=== PATIENT | female | born 1940 | race Caucasian/White ===

== ENCOUNTER 2024-12-12 14:51 | Inpatient (IN) ==
--- NOTE | 2024-12-12 15:28 | Emergency Department Note ---
Impression & Plan Pleural effusion, Acute dyspnea ED Provider Note Patient is an 84-year-old [facility] emergency department with shortness of breath. Patient was discharged from [facility] 4 days ago. At that time she reports that she had a pleural effusion that was drained on their right lung, she was admitted for 5 days. She was really there for hematuria which has been waxing and waning. She does take Eliquis which was decreased. She was told that she may have a lung malignancy as the cause of her pleural effusion. She was sent home and has been weak, short of breath and decreased energy different than her baseline since arriving back at home. Patient has a history of COPD, no specific cardiac history. She has had a previous stroke with residual right-sided weakness. She has had her lungs drained just this 1 time, has not been a recurrent issue. They reportedly wanted her to get a PET scan to look for malignancy, however she has not yet obtained this. She spoke with her doctor today and given that she was continuing to worsen, they recommended coming to the emergency department. ROS: Gen: No fevers, , chills, + weakness ENT: No URI sympotms, no epistaxis CV: No Chest pain Pulm: + SOB, cough GI: No nausea, vomiting. No abd pain + decreased appetite Physical exam Gen: Ill appearing, mild respiratory distress, chronically ill CV: S1 S2 No murmurs, No edema Pulm: Absent breath sound right side, diminished left side with some wheezing GI abd soft, nontendern, normal bowel sounds, no distension : No CVA tenderness, no suprapubic tenderness Skin: No rashes or erythema. ED course: Patient reevaluated, she is feeling still short of breath, she was received a breathing treatment. She does have some mild tachypnea but is maintaining oxygenation. Reviewed the x-rays and there is whiteout of the right lung suspicious for severe pleural effusion that will likely require thoracentesis. She did take Eliquis this a.m. We have reached out to Dr. Jordan of pulm/ICU to discuss next treatment steps. Case discussed with Dr. Jordan of Critical care/pulmonology at 4:49 PM, recommending noncontrast CT to rule out mucous plugging or other cause of her white. Require bronchoscopy or thoracentesis depending on cause of the whiteout. Recommends admitting to stepdown unit for further evaluation and pulmonary consult. Case placed up for admission at 5:03 PM, skilled nursing case manager notified. Patient reassessed and she feels worse on the BiPAP. She was oxygenating adequately without the BiPAP so we will try her back off. CT Noncon ordered. Nurse aware. Case discussed with hospitalist at approximately 5:15 PM, will evaluate, patient currently in CT scan. This seems to show a fairly large right-sided pleural effusion as expected. After discussion with the hospitalist and again with ICU/pulmonary Dr. Jordan. Do feel that they could manage this findings here without transfer to tertiary care center. Plan for hospitalization and management of pleural effusion, atelectasis and likely lung malignancy. Past Med/Surg History Problem List (Updated 12/12/24 @ 17:37 by Devan Hathaway MD) Acute dyspnea (Acute) Pleural effusion (Acute) Adenocarcinoma of rectum Iron deficiency anemia Diabetes mellitus HTN (hypertension) HLD (hyperlipidemia) History of CVA (cerebrovascular accident) Atrial fibrillation Anticoagulant long-term use MOMO (obstructive sleep apnea) COPD (chronic obstructive pulmonary disease) Depression with anxiety Osteoporosis Medical History History of CVA (cerebrovascular accident) MOMO (obstructive sleep apnea) COPD (chronic obstructive pulmonary disease) Depression with anxiety Osteoporosis Adenocarcinoma of rectum HLD (hyperlipidemia) HTN (hypertension) Diabetes mellitus H/O sigmoidoscopy Surgical History History of removal of ovarian cyst Hx of cholecystectomy H/O ventral hernia repair H/O esophagogastroduodenoscopy Hx of colonoscopy Family History Mother Heart disease Hypertension Stroke Sister Cancer Diabetes Brother Lung cancer Father Alcoholism Social History Smoking Status: Former smoker Tobacco Type: Cigarettes Age Started Using Tobacco: 15; Age Quit Using Tobacco: 51; packs per day: 1; Second Hand Exposure: Yes; Do You Dip or Chew Tobacco: No; Hx Alcohol Use: No Hx Substance Use: No Preferred Language: Brazilian marital status: / Current Living Situation: Family Current Living Situation Comment: lives w/ sister in law current occupational status: retired How many Children do You have: 0 Feels Safe at Home: Yes Seatbelt Use: always Do you think of yourself as: straight/heterosexual Gender Identity: Female Allergies Allergies Allergy/AdvReac Type Severity Reaction Status Date / Time No Known Allergies Allergy Verified 12/12/24 16:54 Home Meds Home Medications Medication Instructions Recorded Confirmed Oxygen Home 07/03/22 05/09/24 fluticasone propionate 50 2 spray intranasal DAILY PRN 08/31/23 12/12/24 mcg/actuation nasal Congestion spray,suspension (Allergy Relief (fluticasone)) cranberry 500 mg capsule 500 mg PO BIDM 01/12/24 12/12/24 multivitamin 1 tab PO DAILY 01/12/24 12/12/24 magnesium oxide 400 mg PO DAILY 11/09/24 12/12/24 apixaban 2.5 mg tablet (Eliquis) 2.5 mg PO BID 12/12/24 12/12/24 Previous Rx's Medication Instructions Recorded blood sugar diagnostic (OneTouch #400 ea 07/03/22 Ultra Test strips) lancets 30 gauge (OneTouch #400 ea 07/03/22 UltraSoft 2 Lancet) inhalational spacing device #1 ea 01/12/24 (Aerochamber MV spacer) Spacer for Inhaler #1 ea 01/19/24 citalopram 20 mg tablet 20 mg PO DAILY #90 tabs 01/24/24 rosuvastatin 10 mg tablet 10 mg PO DAILY #90 tabs 02/07/24 hydrochlorothiazide 12.5 mg tablet 12.5 mg PO DAILY #90 tabs 02/10/24 albuterol sulfate 90 mcg/actuation 2 puff inhalation QID PRN 02/11/24 aerosol inhaler shortness of breath or wheezing #8.5 grams insulin glargine 100 unit/mL (3 10 unit (0.1 mL) subcut QPM #15 mL 04/10/24 mL) subcutaneous pen (Basaglar KwikPen U-100 Insulin) hydralazine 10 mg tablet 10 mg PO BID #180 tabs 05/08/24 nebulizers #1 ea 05/16/24 ferrous sulfate 325 mg (65 mg 325 mg PO DAILY #30 tabs 05/19/24 iron) tablet nifedipine 60 mg tablet,extended 60 mg PO DAILY #90 tabs 06/12/24 release 24 hr lisinopril 20 mg tablet 20 mg PO DAILY #90 tabs 09/11/24 albuterol sulfate 2.5 mg/3 mL 2.5 mg (3 mL) inhalation Q6H PRN 10/31/24 (0.083 %) solution for nebulization shortness of breath or wheezing #360 mL fluticasone fur. 100 mcg-umeclid 1 inh inhalation DAILY #28 ea 11/09/24 62.5 mcg-vilant 25 mcg inhalat.powder (Trelegy Ellipta) Oxygen Home #1 ea 11/10/24 Results & Data (ED) Vital Signs Vital Signs - 24 hr 12/12/24 15:00 12/12/24 15:14 12/12/24 15:22 Temperature 36.3 C L Temperature Source Temporal Artery Scan Pulse Rate 87 Pulse Rate [Apical] Pulse Rate from SpO2 Sensor Respiratory Rate 18 Respiratory Effort / Characteristics Non-Labored Spontaneous Respiratory Depth Normal Respiratory Pattern Regular Blood Pressure 138/64 Blood Pressure [Right Arm] Blood Pressure Mean 88 Blood Pressure Mean [Right Arm] Pulse Oximetry 97 89 L Oxygen Delivery Method Room Air Nasal Cannula Nasal Cannula Oxygen Flow Rate 3 Fraction of Inspired Oxygen Sepsis Recent Fever Within 48 Hours No Sepsis New/Unexplained Change in Mental Status N/A Sepsis Action Taken by Nursing No Action Required Oxygen Flow Rate - Titration 4 Pulse Oximetry Post Tiitration 94 12/12/24 15:52 12/12/24 16:01 12/12/24 16:20 Temperature Temperature Source Pulse Rate 81 Pulse Rate [Apical] 93 H 90 Pulse Rate from SpO2 Sensor Respiratory Rate 18 20 Respiratory Effort / Characteristics Respiratory Depth Respiratory Pattern Blood Pressure Blood Pressure [Right Arm] 123/71 122/95 Blood Pressure Mean Blood Pressure Mean [Right Arm] 88 104 Pulse Oximetry 95 97 Oxygen Delivery Method Nasal Cannula Nasal Cannula Oxygen Flow Rate Fraction of Inspired Oxygen Sepsis Recent Fever Within 48 Hours Sepsis New/Unexplained Change in Mental Status Sepsis Action Taken by Nursing Oxygen Flow Rate - Titration Pulse Oximetry Post Tiitration 12/12/24 16:21 12/12/24 16:30 12/12/24 16:43 Temperature Temperature Source Pulse Rate 91 H Pulse Rate [Apical] 87 Pulse Rate from SpO2 Sensor Respiratory Rate 23 22 26 H Respiratory Effort / Characteristics Non-Labored Spontaneous Respiratory Depth Retractive Respiratory Pattern Tachypnea Blood Pressure 125/65 Blood Pressure [Right Arm] 95/54 L Blood Pressure Mean 85 Blood Pressure Mean [Right Arm] 67 Pulse Oximetry 97 97 96 Oxygen Delivery Method BiPAP Oxygen Flow Rate Fraction of Inspired Oxygen 30 Sepsis Recent Fever Within 48 Hours Sepsis New/Unexplained Change in Mental Status Sepsis Action Taken by Nursing Oxygen Flow Rate - Titration Pulse Oximetry Post Tiitration 12/12/24 16:45 12/12/24 17:00 12/12/24 18:23 Temperature Temperature Source Pulse Rate 84 Pulse Rate [Apical] 83 Pulse Rate from SpO2 Sensor 89 Respiratory Rate 21 28 H Respiratory Effort / Characteristics Respiratory Depth Respiratory Pattern Blood Pressure 112/58 L 126/66 Blood Pressure [Right Arm] 111/72 Blood Pressure Mean 89 80 Blood Pressure Mean [Right Arm] 85 Pulse Oximetry 96 96 99 Oxygen Delivery Method Oxygen Flow Rate Fraction of Inspired Oxygen Sepsis Recent Fever Within 48 Hours Sepsis New/Unexplained Change in Mental Status Sepsis Action Taken by Nursing Oxygen Flow Rate - Titration Pulse Oximetry Post Tiitration 12/12/24 18:30 Temperature Temperature Source Pulse Rate 87 Pulse Rate [Apical] Pulse Rate from SpO2 Sensor Respiratory Rate 23 Respiratory Effort / Characteristics Respiratory Depth Respiratory Pattern Blood Pressure 117/63 Blood Pressure [Right Arm] Blood Pressure Mean 92 Blood Pressure Mean [Right Arm] Pulse Oximetry 98 Oxygen Delivery Method Oxygen Flow Rate Fraction of Inspired Oxygen Sepsis Recent Fever Within 48 Hours Sepsis New/Unexplained Change in Mental Status Sepsis Action Taken by Nursing Oxygen Flow Rate - Titration Pulse Oximetry Post Tiitration mild hypoxia, does use 2 L nasal cannula at home Home Medications Current Medication List: was personally reviewed by me Additional Comments: On Eliquis, likely will impact time frame into thoracentesis. Laboratory Data No significant white blood cell count, electrolytes within normal limit, creatinine okay. 12/12/24 15:36 12/12/24 15:36 Lab Results 12/12/24 Range/Units 15:36 WBC 6.48 (4.8-10.8) K/ul RBC 3.84 L (4.20-5.40) M/uL Hgb 10.6 L (12.0-16.0) g/dl Hct 33.8 L (37.0-47.0) % MCV 88.0 (80.0-100.0) fL MCH 27.6 (25.0-34.0) pg MCHC 31.4 L (32.0-36.0) g/dL RDW Std Deviation 39.9 (36.4-46.3) fL RDW Coeff of Maurilio 12.5 (11.5-14.5) % Plt Count 311 (130-400) K/uL MPV 10.2 (9.4-12.4) fL Immature Gran % (Auto) 0.3 % Neut % (Auto) 85.8 % Lymph % (Auto) 8.0 % Alfalfa % (Auto) 5.1 % Eos % (Auto) 0.3 % Baso % (Auto) 0.5 % Neut # (Auto) 5.56 (1.40-6.50) K/uL Lymph # (Auto) 0.52 L (1.20-3.40) K/uL Alfalfa # (Auto) 0.33 (0.11-0.59) K/uL Eos # (Auto) 0.02 (0.00-0.50) K/uL Baso # (Auto) 0.03 (0.00-0.20) K/uL Immature Gran # (Auto) 0.02 (0.01-0.20) K/uL PT 11.4 (9.0-12.0) Seconds INR 1.1 (0.9-1.1) APTT 34 H (21-31) Seconds PTT Ratio 1.3 VBG pH 7.32 L (7.36-7.41) VBG pCO2 67 H (38-50) mmHg VBG pO2 30 mmHg VBG HCO3 35 mmol/L VBG O2 Saturation < 60.0 % VBG Base Excess 6.1 mEq/L Sodium 139 (136-145) mmol/L Potassium 5.1 (3.5-5.1) mmol/L Chloride 100 (98-107) mmol/L Carbon Dioxide 34 H (21-32) mmol/L Anion Gap 5 (3-11) BUN 56 H (6-23) mg/dl Creatinine 1.16 (0.6-1.2) mg/dl Est Cr Clr Drug Dosing 28.6 ml/min eGFR 46.49 BUN/Creatinine Ratio 48.3 H (10-20) Glucose 189 H (70-99(Fasting)) mg/dl Lactate 1.9 (0.4-2.0) mmol/L Calcium 10.1 (8.6-10.3) mg/dl Magnesium 2.0 (1.7-2.4) mg/dl Total Bilirubin 0.3 (0.2-1.0) mg/dl Direct Bilirubin 0.0 (0-0.2) mg/dl AST 32 (13-39) U/L ALT 14 (7-52) U/L Alkaline Phosphatase 93 (34-104) U/L Troponin I High Sens 9.9 (0-14) pg/ml B-Natriuretic Peptide 163 H (0-100) pg/ml Total Protein 6.6 (6.0-8.3) gm/dl Albumin 3.3 L (3.4-5.0) gm/dl Procalcitonin 0.11 (0-0.5) ng/ml Administered Medications Discontinued Medications Albuterol (Albut/Ipratrop 3mg/0.5mg Neb 3 Ml Vial) 3 ml NEB NOW STA; Protocol Stop: 12/12/24 15:29 Last Admin: 12/12/24 15:47 Dose: 3 ml Documented By: [facility]MA Imaging Data Attestation: I personally reviewed and interpreted this imaging study as follows: My Impression: Significant pleural effusion on the right side, whiteout of right lung, left lung looks relatively clear. No shifting of the mediastinum. Radiologist's Impression: Chest X-Ray 12/12/24 15:22 Clinical History: Sepsis Technique: A frontal view of the chest was obtained No prior examination is available for comparison Findings: There is complete opacification of the right hemithorax. There is no appreciable volume loss or mass-effect with no mediastinal shift seen. The left lung appears clear. The heart size is within normal limits. No fracture is noted. 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 Assuming this is not due to prior right pneumonectomy, this is likely due to a large right pleural effusion combined with right lung atelectasis and/or pneumonia. Underlying neoplasm cannot be excluded ACT 112: Positive. There are findings on this exam that require communication between the performing entity and the patient following Patient Test Result Information Act ([place] ACT 112) guidelines. Electronically signed by Jack Cueto 12-12-2024 4:[address] 12/12/24 16:55 EXAMINATION: Chest CT without CLINICAL HISTORY: Short of breath, abnormal chest x-ray, right pleural effusion PRIORS: Chest radiograph today TECHNIQUE: Contiguous axial images were obtained through the chest with the use of intravenous contrast. Sagittal and coronal reformations are supplied. FINDINGS: Large right pleural effusion is noted with the large central mass and/or atelectatic lung, image 27, series 2. Right mediastinal and hilar adenopathy is present. Subcarinal adenopathy noted. Heart size is normal. Possible pericardial adenopathy. Advanced atherosclerotic disease of the aorta and coronary arteries noted. Trachea and left mainstem bronchi are patent. The right subsegmental bronchi are occluded diffusely. Left lung expands normally. No dominant mass. Small pulmonary nodule or calcified granuloma present adjacent to the fissure, measuring 5 mm, image 30, series 3. Moderate osseous demineralization is noted. Kyphosis is present. Moderate compression fracture one of the lower thoracic vertebral bodies. No lytic or blastic lesion appreciated. IMPRESSION: Right hilar mass and/or atelectatic lung with large right pleural effusion, occupying the entire hemithorax. Right hilar and mediastinal adenopathy present with occlusion of the subsegmental bronchi of all lobes. Findings are worrisome for malignancy. A diagnostic and therapeutic pleurocentesis could be considered and/or PET/CT if appropriate. Tissue diagnosis suggested. ACT 112: Positive. There are findings on this examination that require communication between the performing entity and the patient following Patient Test Result Information Act ([place] ACT 112) guidelines. Electronically signed by Mary Gil 12-12-2024 5:[address] scan looks to show compressive atelectasis with right-sided pleural effusion, fairly large. Radiology report confirms large right-sided pleural effusion, does also seem to have compression from a malignant mass. Likely require bronchoscopy, thoracentesis. ECG Data Attestation: I personally reviewed and interpreted this ECG as follows: Indication: + SOB/dyspnea Rate (beats per minute): 79 Rhythm: atrial fibrillation ECG ST segments: + Normal ST segments Additional Comments: No acute ischemic changes Discharge Plan Visit Data Chief Complaint: Illness Stated Complaint: WEAK, BLOOD IN URINE, LOW O2 ED Provider: Devan Hathaway Discharge Problem: Pleural effusion, Acute dyspnea Patient Disposition: Admitted As Inpatient Condition: Serious Forms Stand Alone Forms: My [facility] Prescriptions Prescriptions: No Action (DME) Spacer for Inhaler Misc See Rx Instructions .Route Qty: 1 0RF Rx Instructions: As directed citalopram 20 mg tablet 20 mg PO DAILY Qty: 90 3RF rosuvastatin 10 mg tablet 10 mg PO DAILY Qty: 90 3RF hydrochlorothiazide 12.5 mg tablet 12.5 mg PO DAILY Qty: 90 3RF albuterol sulfate 90 mcg/actuation HFA aerosol inhaler 2 puff inhalation QID PRN (Reason: shortness of breath or wheezing) Qty: 8.5 0RF insulin glargine [Basaglar KwikPen U-100 Insulin] 100 unit/mL (3 mL) insulin pen 10 unit subcut QPM Qty: 15 3RF hydralazine 10 mg tablet 10 mg PO BID Qty: 180 3RF ferrous sulfate 325 mg (65 mg iron) tablet 325 mg PO DAILY Qty: 30 5RF nifedipine 60 mg tablet extended release 24hr 60 mg PO DAILY Qty: 90 3RF lisinopril 20 mg tablet 20 mg PO DAILY Qty: 90 3RF albuterol sulfate 2.5 mg /3 mL (0.083 %) solution for nebulization 2.5 mg inhalation Q6H PRN (Reason: shortness of breath or wheezing) Qty: 360 3RF (DME) Oxygen Home Liters Per Minute See Rx Instructions .Route Qty: 1 0RF Rx Instructions: As directed. Wear 1 liter of oygen at rest via nasal cannula. (DME) Oxygen Home Liters Per Minute See Rx Instructions .Route Rx Instructions: 2 lpm at bedtime (DME) OneTouch Ultra Test Strip See Rx Instructions .Route Qty: 400 3RF Rx Instructions: test qid dx: e11.9 (DME) lancets [OneTouch UltraSoft 2 Lancet] 30 gauge misc See Rx Instructions .Route Qty: 400 3RF Rx Instructions: test qid fluticasone propionate [Allergy Relief (fluticasone)] 50 mcg/actuation spray,suspension 2 spray intranasal DAILY PRN (Reason: Congestion) Rx Instructions: administer into each nostril (DME) nebulizers Misc See Rx Instructions .Route Qty: 1 0RF Rx Instructions: As directed magnesium oxide 400 mg magnesium capsule 400 mg PO DAILY Trelegy Ellipta 100-62.5-25 mcg blister with device 1 inh inhalation DAILY Qty: 28 2RF multivitamin Tablet 1 tab PO DAILY cranberry 500 mg capsule 500 mg PO BIDM Rx Instructions: administer with meals (DME) Aerochamber MV Spacer See Rx Instructions .Route Qty: 1 0RF Rx Instructions: As directed. Spacer for albuterol Eliquis 2.5 mg tablet 2.5 mg PO BID Rx Instructions: CHANGED DOSE 12/07/24 Referrals Referrals: Yesi Trammell DO [Primary Care Provider] -
[2024-12-12] MEDS: ALBUT/IPRATROP 3MG/0.5MG NEB 3 ML VIAL NEB STA (15:47)
[2024-12-12 15:58] LABS: Base Excess VBG 6.1 mEq/L; HCO3 VBG 35 mmol/L; Oxygen Saturation VBG < 60.0 %; PCO2 VBG 67 mmHg (38-50); PO2 VBG 30 mmHg; pH VBG 7.32 (7.36-7.41)
[2024-12-12 16:05] LABS: Hematocrit (blood only) 33.8 % (37.0-47.0); Hemoglobin 10.6 g/dl (12.0-16.0); Immature Granulocytes # (auto) 0.02 K/uL (0.01-0.20); Immature Granulocytes % (auto) 0.3 %; Mean Corpuscular Hemoglobin 27.6 pg (25.0-34.0); Mean Corpuscular Volume 88.0 fL (80.0-100.0); Platelet Count 311 K/uL (130-400); RDW Standard Deviation 39.9 fL (36.4-46.3); Red Blood Count 3.84 M/uL (4.20-5.40); White Blood Count 6.48 K/ul (4.8-10.8)
[2024-12-12 16:25] LABS: Alanine Aminotransferase 14.0 U/L (7-52); Albumin Level 3.3 gm/dl (3.4-5.0); Alkaline Phosphatase 93.0 U/L (34-104); Anion Gap 5.0 (3-11); Bilirubin,Total 0.3 mg/dl (0.2-1.0); Blood Urea Nitrogen 56.0 mg/dl (6-23); Calcium 10.1 mg/dl (8.6-10.3); Carbon Dioxide 34.0 mmol/L (21-32); Chloride 100.0 mmol/L (98-107); Creatinine Clr Calc Pharmacy 28.6 ml/min; Glucose 189.0 mg/dl (70-99(Fasting)); Magnesium 2.0 mg/dl (1.7-2.4); Potassium 5.1 mmol/L (3.5-5.1); Sodium 139.0 mmol/L (136-145); Total Protein 6.6 gm/dl (6.0-8.3)
--- NOTE | 2024-12-12 16:30 | XRay Report ---
Clinical History: Sepsis Technique: A frontal view of the chest was obtained No prior examination is available for comparison Findings: There is complete opacification of the right hemithorax. There is no appreciable volume loss or mass-effect with no mediastinal shift seen. The left lung appears clear. The heart size is within normal limits. No fracture is noted. 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 Assuming this is not due to prior right pneumonectomy, this is likely due to a large right pleural effusion combined with right lung atelectasis and/or pneumonia. Underlying neoplasm cannot be excluded ACT 112: Positive. There are findings on this exam that require communication between the performing entity and the patient following Patient Test Result Information Act ([place] ACT 112) guidelines. Electronically signed by Jack Cueto 12-12-2024 4:29 PM
[2024-12-12 16:40] LABS: INR 1.1 (0.9-1.1); Partial Thromboplastin Time 34 Seconds (21-31); Prothrombin Time 11.4 Seconds (9.0-12.0)
--- NOTE | 2024-12-12 17:53 | CT Scan Report ---
EXAMINATION: Chest CT without CLINICAL HISTORY: Short of breath, abnormal chest x-ray, right pleural effusion PRIORS: Chest radiograph today TECHNIQUE: Contiguous axial images were obtained through the chest with the use of intravenous contrast. Sagittal and coronal reformations are supplied. FINDINGS: Large right pleural effusion is noted with the large central mass and/or atelectatic lung, image 27, series 2. Right mediastinal and hilar adenopathy is present. Subcarinal adenopathy noted. Heart size is normal. Possible pericardial adenopathy. Advanced atherosclerotic disease of the aorta and coronary arteries noted. Trachea and left mainstem bronchi are patent. The right subsegmental bronchi are occluded diffusely. Left lung expands normally. No dominant mass. Small pulmonary nodule or calcified granuloma present adjacent to the fissure, measuring 5 mm, image 30, series 3. Moderate osseous demineralization is noted. Kyphosis is present. Moderate compression fracture one of the lower thoracic vertebral bodies. No lytic or blastic lesion appreciated. IMPRESSION: Right hilar mass and/or atelectatic lung with large right pleural effusion, occupying the entire hemithorax. Right hilar and mediastinal adenopathy present with occlusion of the subsegmental bronchi of all lobes. Findings are worrisome for malignancy. A diagnostic and therapeutic pleurocentesis could be considered and/or PET/CT if appropriate. Tissue diagnosis suggested. ACT 112: Positive. There are findings on this examination that require communication between the performing entity and the patient following Patient Test Result Information Act ([place] ACT 112) guidelines. Electronically signed by Mary Gil 12-12-2024 5:52 PM
--- NOTE | 2024-12-12 19:41 | History & Physical Report ---
Date of Service December 12, 2024 Assessment & Plan (1) Acute dyspnea: (2) Pleural effusion: (3) Adenocarcinoma of rectum: (4) Iron deficiency anemia: (5) Diabetes mellitus: (6) HTN (hypertension): (7) HLD (hyperlipidemia): (8) History of CVA (cerebrovascular accident): (9) Atrial fibrillation: (10) Anticoagulant long-term use: (11) MOMO (obstructive sleep apnea): (12) COPD (chronic obstructive pulmonary disease): (13) Depression with anxiety: (14) Osteoporosis: Plan #right pleural effusion #right hilar mass #hypoxemic respiratory failure #COPD - admit to PCU, pulmonary consult, initiate Unasyn for postobstructive pneumonia empiric coverage - Mucinex, DuoNeb, albuterol, respiratory therapy consult, flutter valve/ICS as tolerated - hold Eliquis for likely thoracentesis - will request records from prior thoracentesis - continuous pulse ox, telemetry monitoring - hematology/oncology consult pending results of thoracentesis/potential biopsy - will likely need to hold Eliquis for at least 24 hours, will start with cardiac/diabetic diet #MOMO - has not tolerated CPAP/BiPAP in the past, did not tolerate here - continuous pulse ox, RT consult, oxygen support as above #atrial fibrillation - rate controlled at this time, telemetry monitoring #type 2 diabetes - blood sugars fairly well-controlled, will check blood sugars AC, continue sliding scale #hypertension - hold lisinopril given mild hyperkalemia, continue nifedipine, hydralazine, HCTZ #hyperlipidemia - hold statin for the short-term #iron deficiency anemia - continue supplement #chronic anticoagulation - hold apixaban pending procedure #history of adenocarcinoma of the rectum - reportedly in remission, noted for history #history of CVA - right hemiparesis, PT and OT consult #depression/anxiety - continue citalopram #prophylaxis - SCDs #CODE STATUS - full code per her wishes, discussed at the bedside with her and her daughter History of Present Illness Chief Complaint: Shortness of breath Primary Care Provider: Yesi Trammell DO Patient is an 84-year-old history of Distant history of colon cancer 3 years ago, COPD, type 2 diabetes, right hemiplegia post CVA, paroxysmal A-fib, sleep apnea presents emergency department with shortness of breath. Patient was discharged from [facility] 4 days ago after 4-day hospitalization. at that time she had received a new diagnosis of pleural effusion which was tapped. Results have not returned. She was told that she may have a lung malignancy as the cause of her pleural effusion. She was sent home and has been weak, short of breath and decreased energy different than her baseline since arriving back at home. Secondary to the progressive shortness of breath and weakness her daughter brought her here to the emergency department for evaluation. CT obtained in the emergency department showed a recurrence of the significant right sided pleural effusion with the right hilar mass. Subsegmental obstruction was noted. No central airway obstruction noted. patient weak and hypoxemic on arrival. Blood gas consistent with acute hypoxemic respiratory failure. initially felt pretty good on BiPAP but however has a history of not tolerating secondary to anxiety. Consultation with Dr. Jordan pulmonology. Plan to admit the patient for recurrent pleural effusion. Pulmonary consult. Aggressive pulmonary toilet. RT consult. Likely thoracentesis. She is on Eliquis and took it this morning so we will hold that on admission. Allergies Allergy/AdvReac Type Severity Reaction Status Date / Time No Known Allergies Allergy Verified 12/12/24 16:54 Home Medications Medication Instructions Recorded Confirmed Type Oxygen Home 07/03/22 05/09/24 History blood sugar diagnostic (OneTouch #400 ea 07/03/22 05/09/24 Rx Ultra Test strips) lancets 30 gauge (OneTouch #400 ea 07/03/22 05/09/24 Rx UltraSoft 2 Lancet) fluticasone propionate 50 2 spray intranasal DAILY PRN 08/31/23 12/12/24 History mcg/actuation nasal Congestion spray,suspension (Allergy Relief (fluticasone)) cranberry 500 mg capsule 500 mg PO BIDM 01/12/24 12/12/24 History inhalational spacing device #1 ea 01/12/24 05/09/24 Rx (Aerochamber MV spacer) multivitamin 1 tab PO DAILY 01/12/24 12/12/24 History Spacer for Inhaler #1 ea 01/19/24 05/09/24 Rx citalopram 20 mg tablet 20 mg PO DAILY #90 tabs 01/24/24 12/12/24 Rx rosuvastatin 10 mg tablet 10 mg PO DAILY #90 tabs 02/07/24 12/12/24 Rx hydrochlorothiazide 12.5 mg tablet 12.5 mg PO DAILY #90 tabs 02/10/24 12/12/24 Rx albuterol sulfate 90 mcg/actuation 2 puff inhalation QID PRN 02/11/24 12/12/24 Rx aerosol inhaler shortness of breath or wheezing #8.5 grams insulin glargine 100 unit/mL (3 10 unit (0.1 mL) subcut QPM #15 mL 04/10/24 12/12/24 Rx mL) subcutaneous pen (Basaglar KwikPen U-100 Insulin) hydralazine 10 mg tablet 10 mg PO BID #180 tabs 05/08/24 12/12/24 Rx nebulizers #1 ea 05/16/24 05/16/24 Rx ferrous sulfate 325 mg (65 mg 325 mg PO DAILY #30 tabs 05/19/24 12/12/24 Rx iron) tablet nifedipine 60 mg tablet,extended 60 mg PO DAILY #90 tabs 06/12/24 12/12/24 Rx release 24 hr lisinopril 20 mg tablet 20 mg PO DAILY #90 tabs 09/11/24 12/12/24 Rx albuterol sulfate 2.5 mg/3 mL 2.5 mg (3 mL) inhalation Q6H PRN 10/31/24 12/12/24 Rx (0.083 %) solution for nebulization shortness of breath or wheezing #360 mL fluticasone fur. 100 mcg-umeclid 1 inh inhalation DAILY #28 ea 11/09/24 12/12/24 Rx 62.5 mcg-vilant 25 mcg inhalat.powder (Trelegy Ellipta) magnesium oxide 400 mg PO DAILY 11/09/24 12/12/24 History Oxygen Home #1 ea 11/10/24 Rx apixaban 2.5 mg tablet (Eliquis) 2.5 mg PO BID 12/12/24 12/12/24 History Past Med/Surg History Problem List (Updated 12/12/24 @ 17:37 by Devan Hathaway MD) Acute dyspnea (Acute) Pleural effusion (Acute) Adenocarcinoma of rectum Iron deficiency anemia Diabetes mellitus HTN (hypertension) HLD (hyperlipidemia) History of CVA (cerebrovascular accident) Atrial fibrillation Anticoagulant long-term use MOMO (obstructive sleep apnea) COPD (chronic obstructive pulmonary disease) Depression with anxiety Osteoporosis Medical History History of CVA (cerebrovascular accident) MOMO (obstructive sleep apnea) COPD (chronic obstructive pulmonary disease) Depression with anxiety Osteoporosis Adenocarcinoma of rectum HLD (hyperlipidemia) HTN (hypertension) Diabetes mellitus H/O sigmoidoscopy Surgical History History of removal of ovarian cyst Hx of cholecystectomy H/O ventral hernia repair H/O esophagogastroduodenoscopy Hx of colonoscopy Family History Mother Heart disease Hypertension Stroke Sister Cancer Diabetes Brother Lung cancer Father Alcoholism Social History Smoking Status: Former smoker Tobacco Type: Cigarettes Age Started Using Tobacco: 15; Age Quit Using Tobacco: 51; packs per day: 1; Second Hand Exposure: Yes; Do You Dip or Chew Tobacco: No; Hx Alcohol Use: No Hx Substance Use: No Preferred Language: Armenian marital status: / Current Living Situation: Family Current Living Situation Comment: lives w/ sister in law current occupational status: retired How many Children do You have: 0 Feels Safe at Home: Yes Seatbelt Use: always Do you think of yourself as: straight/heterosexual Gender Identity: Female Review of Systems Review of Systems: see HPI otherwise 10 point review of systems negative Physical Exam Constitutional: pleasant, conversational, no apparent distress Eyes: sclera clear and anicteric ENMT: mucous membranes moist Neck: trachea midline, no adenopathy Respiratory: absent breath sounds on the right, diminished on the left with no inspiratory or expiratory phase wheezing Cardiovascular: occasional PVCs, regular otherwise Gastrointestinal (Abdomen): nontender nondistended Musculoskeletal: no edema Skin: no rash or discoloration, no pallor Neurologic: alert and oriented x 3 Results & Data Results & Data Vital Signs (Past 12 Hours) Vital Signs Temp Pulse Pulse Resp BP BP Pulse Ox 12/12/24 18:30 87 23 117/63 98 12/12/24 18:23 83 28 H 111/72 99 12/12/24 17:00 126/66 96 12/12/24 16:45 84 21 112/58 L 96 12/12/24 16:43 26 H 125/65 96 12/12/24 16:30 87 22 95/54 L 97 12/12/24 16:21 91 H 23 97 12/12/24 16:20 90 20 122/95 97 12/12/24 16:01 81 12/12/24 15:52 93 H 18 123/71 95 12/12/24 15:22 12/12/24 15:14 89 L 12/12/24 15:00 36.3 C L 87 18 138/64 97 O2 Del Method O2 Flow Rate FiO2 12/12/24 18:30 12/12/24 18:23 12/12/24 17:00 12/12/24 16:45 12/12/24 16:43 12/12/24 16:30 BiPAP 12/12/24 16:21 30 12/12/24 16:20 Nasal Cannula 12/12/24 16:01 12/12/24 15:52 Nasal Cannula 12/12/24 15:22 Nasal Cannula 12/12/24 15:14 Nasal Cannula 3 12/12/24 15:00 Room Air Laboratory Results 12/12/24 15:36 Aerobic Blood Culture - Pending Blood Anaerobic Blood Culture - Pending 12/12/24 15:38 Aerobic Blood Culture - Pending Blood Anaerobic Blood Culture - Pending 12/12/24 15:36 WBC 6.48 RBC 3.84 L Hgb 10.6 L Hct 33.8 L MCV 88.0 MCH 27.6 MCHC 31.4 L RDW Std Deviation 39.9 RDW Coeff of Maurilio 12.5 Plt Count 311 MPV 10.2 Immature Gran % (Auto) 0.3 Neut % (Auto) 85.8 Lymph % (Auto) 8.0 [place] % (Auto) 5.1 Eos % (Auto) 0.3 Baso % (Auto) 0.5 Neut # (Auto) 5.56 Lymph # (Auto) 0.52 L [place] # (Auto) 0.33 Eos # (Auto) 0.02 Baso # (Auto) 0.03 Immature Gran # (Auto) 0.02 PT 11.4 INR 1.1 APTT 34 H PTT Ratio 1.3 VBG pH 7.32 L VBG pCO2 67 H VBG pO2 30 VBG HCO3 35 VBG O2 Saturation < 60.0 VBG Base Excess 6.1 Sodium 139 Potassium 5.1 Chloride 100 Carbon Dioxide 34 H Anion Gap 5 BUN 56 H Creatinine 1.16 Est Cr Clr Drug Dosing 28.6 eGFR 46.49 BUN/Creatinine Ratio 48.3 H Glucose 189 H Lactate 1.9 Calcium 10.1 Magnesium 2.0 Total Bilirubin 0.3 Direct Bilirubin 0.0 AST 32 ALT 14 Alkaline Phosphatase 93 Troponin I High Sens 9.9 B-Natriuretic Peptide 163 H Total Protein 6.6 Albumin 3.3 L Procalcitonin 0.11 Diagnostic Findings Chest X-Ray 12/12/24 15:22 Clinical History: Sepsis Technique: A frontal view of the chest was obtained No prior examination is available for comparison Findings: There is complete opacification of the right hemithorax. There is no appreciable volume loss or mass-effect with no mediastinal shift seen. The left lung appears clear. The heart size is within normal limits. No fracture is noted. 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 Assuming this is not due to prior right pneumonectomy, this is likely due to a large right pleural effusion combined with right lung atelectasis and/or pneumonia. Underlying neoplasm cannot be excluded ACT 112: Positive. There are findings on this exam that require communication between the performing entity and the patient following Patient Test Result Information Act ([place] ACT 112) guidelines. Electronically signed by Jack Cueto 12-12-2024 4:[address] 12/12/24 16:55 EXAMINATION: Chest CT without CLINICAL HISTORY: Short of breath, abnormal chest x-ray, right pleural effusion PRIORS: Chest radiograph today TECHNIQUE: Contiguous axial images were obtained through the chest with the use of intravenous contrast. Sagittal and coronal reformations are supplied. FINDINGS: Large right pleural effusion is noted with the large central mass and/or atelectatic lung, image 27, series 2. Right mediastinal and hilar adenopathy is present. Subcarinal adenopathy noted. Heart size is normal. Possible pericardial adenopathy. Advanced atherosclerotic disease of the aorta and coronary arteries noted. Trachea and left mainstem bronchi are patent. The right subsegmental bronchi are occluded diffusely. Left lung expands normally. No dominant mass. Small pulmonary nodule or calcified granuloma present adjacent to the fissure, measuring 5 mm, image 30, series 3. Moderate osseous demineralization is noted. Kyphosis is present. Moderate compression fracture one of the lower thoracic vertebral bodies. No lytic or blastic lesion appreciated. IMPRESSION: Right hilar mass and/or atelectatic lung with large right pleural effusion, occupying the entire hemithorax. Right hilar and mediastinal adenopathy present with occlusion of the subsegmental bronchi of all lobes. Findings are worrisome for malignancy. A diagnostic and therapeutic pleurocentesis could be considered and/or PET/CT if appropriate. Tissue diagnosis suggested. ACT 112: Positive. There are findings on this examination that require communication between the performing entity and the patient following Patient Test Result Information Act ([place] ACT 112) guidelines. Electronically signed by Mary Gil 12-12-2024 5:52 PM Code Status & VTE Plan VTE Prophylaxis Plan VTE Prophylaxis will be ordered: Yes PG Care Time/CCT Total # of Minutes Spent Total Time Spent with Patient: Total time spent is greater than 50% in coordination of care (as documented) at patient's floor/unit and/or counseling patient: Coding Level of Care Code 06879 INT INP/OBS CARE 3/75MIN Diagnoses Acute dyspnea R06.00 Pleural effusion J90 Adenocarcinoma of rectum C20 Iron deficiency anemia D50.9 Diabetes mellitus E11.9 HTN (hypertension) I10 HLD (hyperlipidemia) E78.5 History of CVA (cerebrovascular accident) Z86.73 Atrial fibrillation I48.91 Anticoagulant long-term use Z79.01 MOMO (obstructive sleep apnea) G47.33 COPD (chronic obstructive pulmonary disease) J44.9 Depression with anxiety F41.8 Osteoporosis M81.0
[2024-12-12] MEDS: AMPICILLIN/SULBACTAM SOD 3,000 MG/100 ML BAG IV SCH (21:15)
[2024-12-12] MEDS ORDERED: ONDANSETRON INJ 2 MG/ML 2 ML VIAL IV PRN (21:42)
[2024-12-12] MEDS ORDERED: ALBUTEROL 0.5% NEB SOLN 2.5 MG/0.5 ML VIAL NEB PRN (21:42)
[2024-12-12] MEDS: hydrALAZINE 10 MG TAB PO SCH (22:40)
[2024-12-12] MEDS: guaiFENesin 600 MG TABCR PO SCH (22:40)
[2024-12-13] MEDS: ALBUT/IPRATROP 3MG/0.5MG NEB 3 ML VIAL NEB SCH ×2 (01:09→19:47)
[2024-12-13 01:54] LABS: Appearance Urine Cloudy (Clear); Glucose Urine UA Negative (Negative)
[2024-12-13] MEDS: UMECLIDINIUM/VILANTEROL 62.5/25MCG 7 PUFFS/INHALER INH SCH (07:53)
[2024-12-13] MEDS: NIFEdipine EXTENDED REL 30 MG TABCR PO SCH (07:54)
[2024-12-13] MEDS: FERROUS SULFATE 325 MG TAB PO SCH (07:54)
[2024-12-13] MEDS: MAGNESIUM OXIDE 400 MG TAB PO SCH (07:55)
[2024-12-13] MEDS: CITALOPRAM 20 MG TAB PO SCH (07:56)
[2024-12-13] MEDS: FLUTICASONE FUROATE 100MCG 14 PUFFS/INHALER INH SCH (07:56)
[2024-12-13] MEDS: hydroCHLOROthiazide 25 MG TAB PO SCH (07:56)
--- NOTE | 2024-12-13 07:56 | Pulmonary Consultation ---
Date of Consultation December 13, 2024 Assessment & Plan (1) Pleural effusion: (2) Pneumonia: (3) Hypoxic respiratory failure: Plan Patient has a heavy tobacco use history. Very large pleural effusion with opacification of the right hemithorax appreciated. Patient is on Eliquis, her last dose was yesterday morning. CT is concerning for malignancy. The patient is agreeable for bronchoscopy with EBUS, biopsies with FNA and transbronchial. We will perform a thoracentesis after the bronchoscopy is completed. This will be scheduled for tomorrow morning. Please keep patient n.p.o. after midnight. Please continue to hold Eliquis. Continue antibiotics to cover for postobstructive pneumonia. Will add pulmonary toilet. Thank you for this consult. Will follow along with you. History of Present Illness Reason for Consultation: Right pleural effusion, hilar mass Requesting Physician: Hipolito Molina MD Attending Physician: Hipolito Molina MD History of Present Illness Patient is an 84-year-old female with a past medical history significant of colon cancer (diagnosed 3 years ago, status post colectomy), COPD with chronic hypoxic respiratory failure (1 L at rest, 2 L at bedtime), former tobacco use, type 2 diabetes, history of CVA with right hemiaplasia, paroxysmal atrial fibrillation on Eliquis, sleep apnea intolerant to CPAP, diabetes, hypertension and hyperlipidemia. The patient presented to the emergency department on 12/12/2024 for evaluation of shortness of breath. The patient was recently hospitalized at [facility] 4 days prior to presenting to our facility. CT of the chest during that hospital stay showed a moderate right pleural effusion so she was airspace disease and atelectasis with possible superimposed infiltrate or even malignancy and complete opacification of the upper lobe bronchus which could not exclude an endobronchial lesion. She was diagnosed at that time with a pleural effusion which was tapped on 12/06/2024 with a total of 1 L removed of clear yellow fluid. Fluid analysis is not available. The patient continued to have shortness of breath after discharge from the previous hospital. Upon arrival to the emergency department the patient was hypoxic. CT showed large right-sided pleural effusion with almost complete atelectasis of the right lung. The patient was started on antibiotics with Unasyn. She was admitted to the hospital and pulmonary was consulted for further recommendations. On examining the patient today she is resting comfortably in bed. She is on nasal cannula. She states that her breathing has continued worse. She has a cough but is not able to bring up any phlegm, she coughs when I was in the room and she does have a very weak cough. She denies any hemoptysis. She has not had fevers, chills, night sweats or noticeable weight loss. She denies any personal history of pulmonary malignancy. I discussed the option of bronchoscopy and thoracentesis and she is agreeable to these procedures. We will plan to do them on . CT chest in 2022 showed small pulmonary nodules measuring up to 0.4 cm, 1 of which was in the left upper lobe and the other ones in the right upper lobe. Known calcified granulomatous disease was seen. Previous PFT in 2018 with FEV1/FVC 54%, FEV1 was 57% predicted. Previous echocardiogram in 2008 showing LVH with diastolic dysfunction, preserved EF. History of tobacco use, smoked 1 pack/day for 39 years (63-tprp-roeb history), quit in 1992. Family history significant for breast cancer within her sister, her mother had a heart attack, hypertension and stroke. Allergies Allergy/AdvReac Type Severity Reaction Status Date / Time No Known Allergies Allergy Verified 12/12/24 16:54 Home Medications Medication Instructions Recorded Confirmed Type Oxygen Home 07/03/22 05/09/24 History blood sugar diagnostic (OneTouch #400 ea 07/03/22 05/09/24 Rx Ultra Test strips) lancets 30 gauge (OneTouch #400 ea 07/03/22 05/09/24 Rx UltraSoft 2 Lancet) fluticasone propionate 50 2 spray intranasal DAILY PRN 08/31/23 12/12/24 History mcg/actuation nasal Congestion spray,suspension (Allergy Relief (fluticasone)) cranberry 500 mg capsule 500 mg PO BIDM 01/12/24 12/12/24 History inhalational spacing device #1 ea 01/12/24 05/09/24 Rx (Aerochamber MV spacer) multivitamin 1 tab PO DAILY 01/12/24 12/12/24 History Spacer for Inhaler #1 ea 01/19/24 05/09/24 Rx citalopram 20 mg tablet 20 mg PO DAILY #90 tabs 01/24/24 12/12/24 Rx rosuvastatin 10 mg tablet 10 mg PO DAILY #90 tabs 02/07/24 12/12/24 Rx hydrochlorothiazide 12.5 mg tablet 12.5 mg PO DAILY #90 tabs 02/10/24 12/12/24 Rx albuterol sulfate 90 mcg/actuation 2 puff inhalation QID PRN 02/11/24 12/12/24 Rx aerosol inhaler shortness of breath or wheezing #8.5 grams insulin glargine 100 unit/mL (3 10 unit (0.1 mL) subcut QPM #15 mL 04/10/24 12/12/24 Rx mL) subcutaneous pen (Basaglar KwikPen U-100 Insulin) hydralazine 10 mg tablet 10 mg PO BID #180 tabs 05/08/24 12/12/24 Rx nebulizers #1 ea 05/16/24 05/16/24 Rx ferrous sulfate 325 mg (65 mg 325 mg PO DAILY #30 tabs 05/19/24 12/12/24 Rx iron) tablet nifedipine 60 mg tablet,extended 60 mg PO DAILY #90 tabs 06/12/24 12/12/24 Rx release 24 hr lisinopril 20 mg tablet 20 mg PO DAILY #90 tabs 09/11/24 12/12/24 Rx albuterol sulfate 2.5 mg/3 mL 2.5 mg (3 mL) inhalation Q6H PRN 10/31/24 12/12/24 Rx (0.083 %) solution for nebulization shortness of breath or wheezing #360 mL fluticasone fur. 100 mcg-umeclid 1 inh inhalation DAILY #28 ea 11/09/24 12/12/24 Rx 62.5 mcg-vilant 25 mcg inhalat.powder (Trelegy Ellipta) magnesium oxide 400 mg PO DAILY 11/09/24 12/12/24 History Oxygen Home #1 ea 11/10/24 Rx apixaban 2.5 mg tablet (Eliquis) 2.5 mg PO BID 12/12/24 12/12/24 History Patient History Medical History H/O sigmoidoscopy Surgical History History of removal of ovarian cyst Hx of cholecystectomy H/O ventral hernia repair H/O esophagogastroduodenoscopy Hx of colonoscopy Family History Mother Heart disease Hypertension Stroke Sister Cancer Diabetes Brother Lung cancer Father Alcoholism Social History Smoking Status: Former smoker Tobacco Type: Cigarettes Age Started Using Tobacco: 15; Age Quit Using Tobacco: 51; packs per day: 1; Second Hand Exposure: Yes; Do You Dip or Chew Tobacco: No; Hx Alcohol Use: No Hx Substance Use: No Preferred Language: Wolof Communication Ability: Effective Isobutylene Operator Chief Required: No Beliefs That Will Affect Care: None marital status: / Current Living Situation: Family Current Living Situation Comment: lives w/ sister in law current occupational status: retired How many Children do You have: 0 Feels Safe at Home: Yes Seatbelt Use: always Do you think of yourself as: straight/heterosexual Gender Identity: Female Assistive Devices: Wheelchair Review of Systems Review of Systems: A 12 point review of systems was obtained in detail. Negative except as noted in HPI. Physical Exam Physical Exam: Physical examination: General: Frail appearing, sitting at edge of bed, well-kept, not in distress. HEENT: Normocephalic, atraumatic. Extraocular movements intact. Sclera are nonicteric. No JVD appreciated. Skin: Warm and dry. No rashes appreciated. No jaundice appreciated. Cardiovascular: Heart is a regular rate and rhythm, no murmurs appreciated on my exam. No significant lower extremity edema. Lungs: Absent breath sounds on the right, diminished on the left. On nasal cannula. Nontachypneic. Abdomen: Nondistended, nontender to palpation. Musculoskeletal: Normal muscle mass and tone. No gross joint deformity abnormalities. No effusions appreciated. Neurologic: Awake and alert, oriented. CN II through XII are grossly intact. Speech is fluent. Nonfocal exam. Psychiatric: Appropriate cooperative during my exam. Results & Data Results & Data Vital Signs (Past 12 Hours) Vital Signs Temp Pulse Pulse Resp BP BP Pulse Ox 12/13/24 02:52 36.7 C 68 16 144/57 H 96 12/13/24 01:09 82 17 96 12/12/24 22:27 76 12/12/24 21:54 12/12/24 21:54 36.6 C 76 16 158/69 H 96 12/12/24 21:09 82 18 119/84 99 O2 Del Method O2 Flow Rate 12/13/24 02:52 Nasal Cannula 3 12/13/24 01:09 Nasal Cannula 3 12/12/24 22:27 12/12/24 21:54 Nasal Cannula 12/12/24 21:54 Nasal Cannula 4 12/12/24 21:09 Nasal Cannula 4 Diagnostic Findings I personally reviewed her CT imaging, large pleural effusion and right lung atelectasis are appreciated. Right upper lobe may be occluded, I am able to follow airways down into the lower lobe and middle lobe however. Adenopathy is appreciated. PG Care Time/CCT Total # of Minutes Spent Total Time Spent with Patient: Total time spent is greater than 50% in coordination of care (as documented) at patient's floor/unit and/or counseling patient: [place] [address] IN/OBS CONSULT LVL 4,60M Patient Type New History Comprehensive Exam Comprehensive Medical Decision Making Moderate Complexity Diagnoses Pleural effusion J90 Pneumonia J18.9 Hypoxic respiratory failure J96.91
[2024-12-13 07:58] LABS: Hematocrit (blood only) 32.2 % (37.0-47.0); Hemoglobin 10.1 g/dl (12.0-16.0); Immature Granulocytes # (auto) 0.02 K/uL (0.01-0.20); Immature Granulocytes % (auto) 0.3 %; Mean Corpuscular Hemoglobin 27.4 pg (25.0-34.0); Mean Corpuscular Volume 87.5 fL (80.0-100.0); Platelet Count 310 K/uL (130-400); RDW Standard Deviation 39.9 fL (36.4-46.3); Red Blood Count 3.68 M/uL (4.20-5.40); White Blood Count 6.53 K/ul (4.8-10.8)
[2024-12-13 08:16] LABS: Alanine Aminotransferase 13.0 U/L (7-52); Albumin Globulin Ratio 1.0 (0.9-2); Albumin Level 3.0 gm/dl (3.4-5.0); Alkaline Phosphatase 82.0 U/L (34-104); Anion Gap 6.0 (3-11); Bilirubin,Total 0.3 mg/dl (0.2-1.0); Blood Urea Nitrogen 48.0 mg/dl (6-23); Calcium 9.6 mg/dl (8.6-10.3); Carbon Dioxide 32.0 mmol/L (21-32); Chloride 104.0 mmol/L (98-107); Creatinine Clr Calc Pharmacy 31.5 ml/min; Globulin 3.1 gm/dl (2.5-4.0); Glucose 120.0 mg/dl (70-99(Fasting)); Magnesium 2.1 mg/dl (1.7-2.4); Potassium 5.1 mmol/L (3.5-5.1); Sodium 142.0 mmol/L (136-145); Total Protein 6.1 gm/dl (6.0-8.3)
[2024-12-13] MEDS ORDERED: NON-FORMULARY MEDICATION (Fluticasone-Umeclidin-Vilanter [Trelegy Ellipta] 100-62.5-25 mcg INH SCH (09:00)
--- NOTE | 2024-12-13 11:54 | Hospitalist Progress Note ---
Date of Service December 13, 2024 Assessment & Plan (1) Acute dyspnea: (2) Pleural effusion: (3) Adenocarcinoma of rectum: (4) Iron deficiency anemia: (5) Diabetes mellitus: (6) HTN (hypertension): (7) HLD (hyperlipidemia): (8) History of CVA (cerebrovascular accident): (9) Atrial fibrillation: (10) Anticoagulant long-term use: (11) MOMO (obstructive sleep apnea): (12) COPD (chronic obstructive pulmonary disease): (13) Depression with anxiety: (14) Osteoporosis: Plan #right pleural effusion #right hilar mass #hypoxemic respiratory failure #COPD - admit to PCU, pulmonary consult, initiate Unasyn for postobstructive pneumonia empiric coverage - Mucinex, DuoNeb, albuterol, respiratory therapy consult, flutter valve/ICS as tolerated - hold Eliquis for likely thoracentesis - will request records from prior thoracentesis - continuous pulse ox, telemetry monitoring - hematology/oncology consult pending results of thoracentesis/potential biopsy - continue to hold Eliquis #MOMO - has not tolerated CPAP/BiPAP in the past, did not tolerate here - continuous pulse ox, RT consult, oxygen support as above #atrial fibrillation - rate controlled at this time, telemetry monitoring #type 2 diabetes - blood sugars fairly well-controlled, will check blood sugars AC, continue sliding scale #hypertension - hold lisinopril given mild hyperkalemia, continue nifedipine, hydralazine, HCTZ #hyperlipidemia - hold statin for the short-term #iron deficiency anemia - continue supplement #chronic anticoagulation - hold apixaban pending procedure #history of adenocarcinoma of the rectum - reportedly in remission, noted for history #history of CVA - right hemiparesis, PT and OT consult #depression/anxiety - continue citalopram #prophylaxis - SCDs #CODE STATUS - full code per her wishes, discussed at the bedside with her and her daughter Admission and Anticipated Discharge Date Admission Date: December 12, 2024 Subjective "did not do that well overnight". States she was unable to sleep very well. Does not feel she is able to breathe adequately. Oxygen sats were okay on monitor. She did trial the BiPAP in the emergency department however has a history of not tolerating this. She does not want to repeat. We discussed different options for positioning. Otherwise she has no new or different generalized symptoms. No lower extremity edema. No history of such. Has not eaten much as of yet. No problem with urinary or bowel function Physical Exam Physical Exam: Physical examination: General: Well-appearing, well-nourished and not in acute distress. lying on her right side hospital bed HEENT: Normocephalic, atraumatic. Extraocular movements intact. Sclera are nonicteric. No JVD appreciated. Skin: Warm and dry. No rashes appreciated. No jaundice appreciated. Lymphatic: No pathologic/enlarged lymph nodes palpated in the neck, axilla. Cardiovascular: Heart is a regular rate and rhythm, no murmurs appreciated on my exam. No significant lower extremity edema. Lungs: lung sounds absent on the right, good air movement on the left with no expiratory phase wheezing Abdomen: Nondistended, nontender to palpation. No masses appreciated. Musculoskeletal: Normal muscle mass and tone. No gross joint deformity abnormalities. No effusions appreciated. Neurologic: Awake and alert, oriented. CN II through XII are grossly intact. Speech is fluent. Nonfocal exam. Psychiatric: Appropriate cooperative during my exam. Results & Data Results & Data Vital Signs (Past 12 Hours) Vital Signs Temp Pulse Resp BP BP Pulse Ox O2 Del Method 12/13/24 11:29 36.7 C 70 20 142/56 H 93 Nasal Cannula 12/13/24 09:11 Nasal Cannula 12/13/24 02:52 36.7 C 68 16 144/57 H 96 Nasal Cannula 12/13/24 01:09 82 17 96 Nasal Cannula O2 Flow Rate 12/13/24 11:29 4 12/13/24 09:11 3 12/13/24 02:52 3 12/13/24 01:09 3 Laboratory Results 12/12/24 15:36 Aerobic Blood Culture - Pending Blood Anaerobic Blood Culture - Pending 12/12/24 15:38 Aerobic Blood Culture - Pending Blood Anaerobic Blood Culture - Pending 12/13/24 12/13/24 12/13/24 11:14 07:36 07:16 WBC 6.53 RBC 3.68 L Hgb 10.1 L Hct 32.2 L MCV 87.5 MCH 27.4 MCHC 31.4 L RDW Std Deviation 39.9 RDW Coeff of Maurilio 12.5 Plt Count 310 MPV 10.1 Immature Gran % (Auto) 0.3 Neut % (Auto) 74.0 Lymph % (Auto) 15.6 [place] % (Auto) 8.1 Eos % (Auto) 1.2 Baso % (Auto) 0.8 Neut # (Auto) 4.83 Lymph # (Auto) 1.02 L [place] # (Auto) 0.53 Eos # (Auto) 0.08 Baso # (Auto) 0.05 Immature Gran # (Auto) 0.02 PT INR APTT PTT Ratio VBG pH VBG pCO2 VBG pO2 VBG HCO3 VBG O2 Saturation VBG Base Excess Sodium 142 Potassium 5.1 Chloride 104 Carbon Dioxide 32 Anion Gap 6 BUN 48 H Creatinine 1.05 Est Cr Clr Drug Dosing 31.5 eGFR 52.39 BUN/Creatinine Ratio 45.7 H Glucose 120 H POC Glucose 156 H 134 H Lactate Calcium 9.6 Magnesium 2.1 Total Bilirubin 0.3 Direct Bilirubin AST 30 ALT 13 Alkaline Phosphatase 82 Troponin I High Sens C-Reactive Protein 5.84 H B-Natriuretic Peptide Total Protein 6.1 Albumin 3.0 L Globulin 3.1 Albumin/Globulin Ratio 1.0 Procalcitonin Urine Color Urine Appearance Urine pH Ur Specific [place] Urine Protein Urine Glucose (UA) Urine Ketones Urine Blood Urine Nitrite Urine Bilirubin Urine Urobilinogen Ur Leukocyte Esterase Urine Comment 12/13/24 12/12/24 12/12/24 01:27 21:40 15:36 WBC 6.48 RBC 3.84 L Hgb 10.6 L Hct 33.8 L MCV 88.0 MCH 27.6 MCHC 31.4 L RDW Std Deviation 39.9 RDW Coeff of [place] 12.5 Plt Count 311 MPV 10.2 Immature Gran % (Auto) 0.3 Neut % (Auto) 85.8 Lymph % (Auto) 8.0 [place] % (Auto) 5.1 Eos % (Auto) 0.3 Baso % (Auto) 0.5 Neut # (Auto) 5.56 Lymph # (Auto) 0.52 L [place] # (Auto) 0.33 Eos # (Auto) 0.02 Baso # (Auto) 0.03 Immature Gran # (Auto) 0.02 PT 11.4 INR 1.1 APTT 34 H PTT Ratio 1.3 VBG pH 7.32 L VBG pCO2 67 H VBG pO2 30 VBG HCO3 35 VBG O2 Saturation < 60.0 VBG Base Excess 6.1 Sodium 139 Potassium 5.1 Chloride 100 Carbon Dioxide 34 H Anion Gap 5 BUN 56 H Creatinine 1.16 Est Cr Clr Drug Dosing 28.6 eGFR 46.49 BUN/Creatinine Ratio 48.3 H Glucose 189 H POC Glucose 108 H Lactate 1.9 Calcium 10.1 Magnesium 2.0 Total Bilirubin 0.3 Direct Bilirubin 0.0 AST 32 ALT 14 Alkaline Phosphatase 93 Troponin I High Sens 9.9 C-Reactive Protein B-Natriuretic Peptide 163 H Total Protein 6.6 Albumin 3.3 L Globulin Albumin/Globulin Ratio Procalcitonin 0.11 Urine Color Yellow Urine Appearance Cloudy A Urine pH 5.5 Ur Specific [place] 1.020 Urine Protein 2+ H Urine Glucose (UA) Negative Urine Ketones Negative Urine Blood 3+ H Urine Nitrite Negative Urine Bilirubin Negative Urine Urobilinogen Negative Ur Leukocyte Esterase Trace H Urine Comment PG Care Time/CCT Total # of Minutes Spent Total Time Spent with Patient: Total time spent is greater than 50% in coordination of care (as documented) at patient's floor/unit and/or counseling patient: Coding Level of Care Code 75811 SUB INP/OBS CARE 2/35MIN Diagnoses Acute dyspnea R06.00 Pleural effusion J90 Adenocarcinoma of rectum C20 Iron deficiency anemia D50.9 Diabetes mellitus E11.9 HTN (hypertension) I10 HLD (hyperlipidemia) E78.5 History of CVA (cerebrovascular accident) Z86.73 Atrial fibrillation I48.91 Anticoagulant long-term use Z79.01 MOMO (obstructive sleep apnea) G47.33 COPD (chronic obstructive pulmonary disease) J44.9 Depression with anxiety F41.8 Osteoporosis M81.0
[2024-12-13] MEDS ORDERED: GLUCOSE 40% GEL 15 GM TUBE PO PRN (11:55)
[2024-12-13] MEDS ORDERED: DEXTROSE 50% 50 ML SYRINGE IV PRN (11:55)
[2024-12-13] MEDS ORDERED: GLUCAGON FOR INJ 1 MG VIAL SQ PRN (11:55)
[2024-12-13] MEDS ORDERED: PHARMACY GLYCEMIC MGMT CONSULT PRN (11:55)
[2024-12-13] MEDS ORDERED: GLUCOSE 10 TAB/TUBE PO PRN (11:55)
[2024-12-13] MEDS ORDERED: CARBOHYDRATES FOR HYPOGLYCEMIA PO PRN (11:55)
[2024-12-13] MEDS: INSULIN ASPART PER UNIT CHARGE SC SCH (12:17)
[2024-12-13] MEDS ORDERED: ALBUT/IPRATROP 3MG/0.5MG NEB 3 ML VIAL NEB PRN (12:24)
--- NOTE | 2024-12-13 14:18 | Pharmacy Report ---
Pharmacy Glycemic Short Note 2 - Date of Service December 13, 2024 - Glycemic Short BSG Results (Last 24 hours): 12/12/24 12/12/24 12/13/24 15:36 21:40 07:16 Glucose 189 H 120 H POC Glucose 108 H 12/13/24 12/13/24 07:36 11:14 Glucose POC Glucose 134 H 156 H OUTPATIENT ANTIDIABETIC REGIMEN: * Lantus 10 units SQ QPM * HbA1c 6.0% (11/09/24) ASSESSMENT: * Danni is an 84 year old female admitted with shortness of breath and a history of insulin dependent type 2 diabetes mellitus. Pharmacy has been consulted to assist with glycemic management while inpatient. * Fasting BSG this AM acceptable, BSGs trending up with lunchtime, will add a basal scale at bedtime (up to home dose) if BSGs are elevated. * NovoLog at a weight based stress of 1.5. She is receiving Unasyn for empiric pneumonia coverage. PLAN FOR INPATIENT GLYCEMIC CONTROL: * Hold outpatient oral diabetes medications * Basal insulin * Lantus 0-10 units SQ HS * Bolus insulin * NovoLog per scale ACHS or Q6hrs while NPO * Goal Range: Low 120 mg/dL - High 160 mg/dL * Correction Factor: 50 mg/dL/unit * Nutritional / Prandial insulin per carb ratio of 1 unit per 15 grams CHO consumed
[2024-12-13] MEDS: ACETYLCYSTEINE 20% INHAL SOLN 4ML ***DISPENSED BY RESP. INH SCH ×2 (17:35→19:45)
[2024-12-13] MEDS: LANTUS PER UNIT CHARGE SC SCH (21:09)
[2024-12-14 08:00] LABS: Hematocrit (blood only) 29.1 % (37.0-47.0); Hemoglobin 9.3 g/dl (12.0-16.0); Immature Granulocytes # (auto) 0.03 K/uL (0.01-0.20); Immature Granulocytes % (auto) 0.5 %; Mean Corpuscular Hemoglobin 28.4 pg (25.0-34.0); Mean Corpuscular Volume 88.7 fL (80.0-100.0); Platelet Count 301 K/uL (130-400); RDW Standard Deviation 40.9 fL (36.4-46.3); Red Blood Count 3.28 M/uL (4.20-5.40); White Blood Count 6.41 K/ul (4.8-10.8)
[2024-12-14 08:12] LABS: Anion Gap 9.0 (3-11); Calcium 9.3 mg/dl (8.6-10.3); Carbon Dioxide 29.0 mmol/L (21-32); Chloride 104.0 mmol/L (98-107); Potassium 5.4 mmol/L (3.5-5.1); Sodium 142.0 mmol/L (136-145)
[2024-12-14 08:18] LABS: Blood Urea Nitrogen 51.0 mg/dl (6-23); Creatinine Clr Calc Pharmacy 26.3 ml/min; Glucose 108.0 mg/dl (70-99(Fasting))
[2024-12-14] MEDS: MoRPHine SULFATE 2 MG/ML CARP IV STA (10:14)
[2024-12-14] MEDS: LACTATED RINGER'S 1,000 ML IV SCH (13:09)
[2024-12-14] MEDS ORDERED: PROPOFOL IV EMULSION 10 MG/ML 20 ML VIAL IV ONE (13:14)
[2024-12-14] MEDS ORDERED: SUCCINYLCHOLINE CHLORIDE 20 MG/ML 10 ML VIAL IV ONE (13:14)
--- NOTE | 2024-12-14 13:26 | Hospitalist Progress Note ---
Date of Service December 14, 2024 Assessment & Plan (1) Acute dyspnea: (2) Pleural effusion: (3) Adenocarcinoma of rectum: (4) Iron deficiency anemia: (5) Diabetes mellitus: (6) HTN (hypertension): (7) HLD (hyperlipidemia): (8) History of CVA (cerebrovascular accident): (9) Atrial fibrillation: (10) Anticoagulant long-term use: (11) MOMO (obstructive sleep apnea): (12) COPD (chronic obstructive pulmonary disease): (13) Depression with anxiety: (14) Osteoporosis: Plan #right pleural effusion #right hilar mass #hypoxemic respiratory failure #COPD - admit to PCU, pulmonary consult, initiate Unasyn for postobstructive pneumonia empiric coverage - Mucinex, DuoNeb, albuterol, respiratory therapy consult, flutter valve/ICS as tolerated - hold Eliquis for likely thoracentesis - will request records from prior thoracentesis - continuous pulse ox, telemetry monitoring - hematology/oncology consult pending results of thoracentesis/potential biopsy - continue to hold Eliquis - Paracentesis possible today but stable to defer based on eliquis timing #hyperkalemia - mild, hold lisinopril, DC LR and start normal saline at 80cc/HR - recheck morning lab - consider Lokelma if this is any higher #G[place]O - provide additional maintenance fluid although will start at 80 cc/h and resuscitate gently given her significant pleural effusion - expect she will need more significant volume expansion after the thoracentesis #MOMO - has not tolerated CPAP/BiPAP in the past, did not tolerate here - continuous pulse ox, RT consult, oxygen support as above #atrial fibrillation - rate controlled at this time, telemetry monitoring - typically [id number] no sustained tachycardia #type 2 diabetes - blood sugars fairly well-controlled, will check blood sugars AC, continue sliding scale - see pharmacy note for glycemic management - within goal range #hypertension - hold lisinopril given mild hyperkalemia, continue nifedipine, hydralazine, HCTZ #hyperlipidemia - hold statin for the short-term #iron deficiency anemia - continue supplement #chronic anticoagulation - hold apixaban pending procedure #history of adenocarcinoma of the rectum - reportedly in remission, noted for history #history of CVA - right hemiparesis, PT and OT consult #depression/anxiety - continue citalopram #prophylaxis - SCDs #CODE STATUS - full code per her wishes, discussed at the bedside with her and her daughter Admission and Anticipated Discharge Date Admission Date: December 12, 2024 Subjective quite stressed and anxious this morning. Breathing is reported as difficult however she is satting well on minimal oxygen. No visible respiratory distress. Mostly very anxious if this morning. Hoping to get this tapping procedure done very soon. Otherwise no new or different symptoms. No changes in urinary or bowel function. No chest pain palpitations or lower extremity edema. No events or concerns per nurse Physical Exam Physical Exam: Physical examination: General: Well-appearing, well-nourished and not in acute distress. lying on her right side hospital bed HEENT: Normocephalic, atraumatic. Extraocular movements intact. Sclera are nonicteric. No JVD appreciated. Skin: Warm and dry. No rashes appreciated. No jaundice appreciated. Lymphatic: No pathologic/enlarged lymph nodes palpated in the neck, axilla. Cardiovascular: Heart is a regular rate and rhythm, no murmurs appreciated on my exam. No significant lower extremity edema. Lungs: lung sounds absent on the right, good air movement on the left with no expiratory phase wheezing Abdomen: Nondistended, nontender to palpation. No masses appreciated. Musculoskeletal: Normal muscle mass and tone. No gross joint deformity abnormalities. No effusions appreciated. Neurologic: Awake and alert, oriented. CN II through XII are grossly intact. Speech is fluent. Nonfocal exam. Psychiatric: Appropriate cooperative during my exam. Results & Data Results & Data Vital Signs (Past 12 Hours) Vital Signs Temp Pulse Pulse Resp BP Pulse Ox O2 Del Method 12/14/24 12:52 36.7 C 93 H 24 112/56 L 98 Nasal Cannula 12/14/24 11:14 36.4 C L 91 H 23 112/56 L 95 Nasal Cannula 12/14/24 08:15 Nasal Cannula 12/14/24 07:16 65 12 98 Nasal Cannula 12/14/24 03:52 36.5 C 61 18 115/55 L 99 Nasal Cannula O2 Flow Rate 12/14/24 12:52 5 12/14/24 11:14 5 12/14/24 08:15 4 12/14/24 07:16 5 12/14/24 03:52 5 Laboratory Results 12/12/24 15:36 Aerobic Blood Culture - Preliminary Blood No growth in Aerobic bottle after 24 hours. Anaerobic Blood Culture - Preliminary No growth in Anaerobic bottle after 24 hours. 12/12/24 15:38 Aerobic Blood Culture - Preliminary Blood No growth in Aerobic bottle after 24 hours. Anaerobic Blood Culture - Preliminary No growth in Anaerobic bottle after 24 hours. 12/14/24 12/14/24 12/14/24 11:52 07:36 07:29 WBC 6.41 RBC 3.28 L Hgb 9.3 L Hct 29.1 L MCV 88.7 MCH 28.4 MCHC 32.0 RDW Std Deviation 40.9 RDW Coeff of Maurilio 12.5 Plt Count 301 MPV 10.1 Immature Gran % (Auto) 0.5 Neut % (Auto) 72.9 Lymph % (Auto) 14.8 [place] % (Auto) 8.9 Eos % (Auto) 2.0 Baso % (Auto) 0.9 Neut # (Auto) 4.67 Lymph # (Auto) 0.95 L [place] # (Auto) 0.57 Eos # (Auto) 0.13 Baso # (Auto) 0.06 Immature Gran # (Auto) 0.03 Sodium 142 Potassium 5.4 H Chloride 104 Carbon Dioxide 29 Anion Gap 9 BUN 51 H Creatinine 1.26 H Est Cr Clr Drug Dosing 26.3 eGFR 42.10 BUN/Creatinine Ratio 40.5 H Glucose 108 H POC Glucose 131 H 133 H Calcium 9.3 C-Reactive Protein 6.80 H Procalcitonin 0.13 12/13/24 12/13/24 20:45 16:18 WBC RBC Hgb Hct MCV MCH MCHC RDW Std Deviation RDW Coeff of Maurilio Plt Count MPV Immature Gran % (Auto) Neut % (Auto) Lymph % (Auto) [place] % (Auto) Eos % (Auto) Baso % (Auto) Neut # (Auto) Lymph # (Auto) [place] # (Auto) Eos # (Auto) Baso # (Auto) Immature Gran # (Auto) Sodium Potassium Chloride Carbon Dioxide Anion Gap BUN Creatinine Est Cr Clr Drug Dosing eGFR BUN/Creatinine Ratio Glucose POC Glucose 131 H 153 H Calcium C-Reactive Protein Procalcitonin PG Care Time/CCT Total # of Minutes Spent Total Time Spent with Patient: Total time spent is greater than 50% in coordination of care (as documented) at patient's floor/unit and/or counseling patient: Coding Level of Care Code 09033 SUB INP/OBS CARE MIN Diagnoses Acute dyspnea R06.00 Pleural effusion J90 Adenocarcinoma of rectum C20 Iron deficiency anemia D50.9 Diabetes mellitus E11.9 HTN (hypertension) I10 HLD (hyperlipidemia) E78.5 History of CVA (cerebrovascular accident) Z86.73 Atrial fibrillation I48.91 Anticoagulant long-term use Z79.01 MOMO (obstructive sleep apnea) G47.33 COPD (chronic obstructive pulmonary disease) J44.9 Depression with anxiety F41.8 Osteoporosis M81.0
--- NOTE | 2024-12-14 13:30 | History & Physical Bridge Note ---
Date of Service December 14, 2024 History & Physical Bridge Note I have examined the patient, reviewed the History & Physical and in the interval since the performance of the History & Physical I have noted the following changes of clinical significance: no changes noted Patient has CT imaging with right lung atelectasis, debris/tumor obscuring airways. Additionally there is a large right pleural effusion. Her plan will be for bronchoscopy with biopsies and airway clearance. We will also perform EBUS. After bronchoscopy I will perform a right sided thoracentesis in the OR. Risk and benefits of the procedure explained in detail. Patient is agreeable. Consent was signed and placed in chart after being witness.
[2024-12-14] MEDS ORDERED: PHENYLEPHRINE 100MCG/ML 5ML SYR ONE ×3 (13:54→14:43)
[2024-12-14] MEDS ORDERED: ROCURONIUM BROMIDE 10 MG/ML 5 ML VIAL IV ONE (14:32)
[2024-12-14] MEDS ORDERED: SUGAMMADEX SODIUM 200 MG/2 ML VIAL IV ONE (15:04)
[2024-12-14] MEDS: EPINEPHrine INJ 1 MG/ML AMP INSTIL ONE ×2 (15:04→15:05)
[2024-12-14] MEDS ORDERED: ATROPINE SULFATE 0.1 MG/ML 10ML SYR IV PRN (15:26)
[2024-12-14] MEDS ORDERED: ONDANSETRON INJ 2 MG/ML 2 ML VIAL IV PRN (15:26)
--- NOTE | 2024-12-14 15:28 | Anesthesiology Consultation ---
Date of Service December 14, 2024 Assessment & Plan (1) Encounter for pre-operative examination: Chart Review Chart Review: Acceptable Risk for Surgery and Patient NOT seen in Pre Admission Testing Consults Requested none ASA ASA3 Proposed Anesthesia Anesthesia Type: General History Surgery Operation Date: 12/14/24 13:35 Proposed Procedures p Bronchoscopy - Norma Jordan MD s Endobronchial Ultrasound, Thoracentesis with Ultrasound Guidance - Norma Jordan MD Height/Weight Height: 5 ft 2 in Weight: 59.1 kg Allergies Allergy/AdvReac Type Severity Reaction Status Date / Time No Known Allergies Allergy Verified 12/12/24 16:54 Medications Home Medications Medication Instructions Recorded Confirmed Last Taken Oxygen Home 07/03/22 05/09/24 Unknown blood sugar diagnostic (OneTouch #400 ea 07/03/22 05/09/24 Unknown Ultra Test strips) lancets 30 gauge (OneTouch #400 ea 07/03/22 05/09/24 Unknown UltraSoft 2 Lancet) fluticasone propionate 50 2 spray intranasal DAILY PRN 08/31/23 12/12/24 Unknown mcg/actuation nasal Congestion spray,suspension (Allergy Relief (fluticasone)) cranberry 500 mg capsule 500 mg PO BIDM 01/12/24 12/12/24 12/12/24 08:00 inhalational spacing device #1 ea 01/12/24 05/09/24 Unknown (Aerochamber MV spacer) multivitamin 1 tab PO DAILY 01/12/24 12/12/24 12/12/24 Spacer for Inhaler #1 ea 01/19/24 05/09/24 Unknown citalopram 20 mg tablet 20 mg PO DAILY #90 tabs 01/24/24 12/12/24 12/12/24 rosuvastatin 10 mg tablet 10 mg PO DAILY #90 tabs 02/07/24 12/12/24 12/12/24 hydrochlorothiazide 12.5 mg tablet 12.5 mg PO DAILY #90 tabs 02/10/24 12/12/24 12/12/24 albuterol sulfate 90 mcg/actuation 2 puff inhalation QID PRN 02/11/24 12/12/24 Unknown aerosol inhaler shortness of breath or wheezing #8.5 grams insulin glargine 100 unit/mL (3 10 unit (0.1 mL) subcut QPM #15 mL 04/10/24 12/12/24 12/11/24 mL) subcutaneous pen (Basaglar KwikPen U-100 Insulin) hydralazine 10 mg tablet 10 mg PO BID #180 tabs 05/08/24 12/12/24 12/12/24 08:00 nebulizers #1 ea 05/16/24 05/16/24 Unknown ferrous sulfate 325 mg (65 mg 325 mg PO DAILY #30 tabs 05/19/24 12/12/24 12/12/24 iron) tablet nifedipine 60 mg tablet,extended 60 mg PO DAILY #90 tabs 06/12/24 12/12/24 12/12/24 release 24 hr lisinopril 20 mg tablet 20 mg PO DAILY #90 tabs 09/11/24 12/12/24 12/12/24 albuterol sulfate 2.5 mg/3 mL 2.5 mg (3 mL) inhalation Q6H PRN 10/31/24 12/12/24 Unknown (0.083 %) solution for nebulization shortness of breath or wheezing #360 mL fluticasone fur. 100 mcg-umeclid 1 inh inhalation DAILY #28 ea 11/09/24 12/12/24 12/12/24 62.5 mcg-vilant 25 mcg inhalat.powder (Trelegy Ellipta) magnesium oxide 400 mg PO DAILY 11/09/24 12/12/24 12/12/24 Oxygen Home #1 ea 11/10/24 Unknown apixaban 2.5 mg tablet (Eliquis) 2.5 mg PO BID 12/12/24 12/12/24 12/12/24 08:00 Active Medications Generic Name Dose Route Start Last Admin Trade Name Freq PRN Reason Stop Dose Admin Acetylcysteine 5 ml 12/13/24 19:00 12/14/24 07:15 Acetylcysteine 20% Inhal Soln 4ml Dispensed By Resp. INH 01/12/25 18:59 5 ml Q12R KENNY Administration Albuterol 3 ml 12/13/24 19:00 12/14/24 13:37 Albut/Ipratrop 3mg/0.5mg Neb 3 Ml Vial NEB 01/12/25 18:59 Not Given Q6R KENNY Protocol Citalopram Hydrobromide 20 mg 12/13/24 09:00 12/14/24 08:08 Citalopram 20 Mg Tab PO 01/12/25 08:59 20 mg DAILY KENNY Administration Ferrous Sulfate 325 mg 12/13/24 09:00 12/14/24 08:07 Ferrous Sulfate 325 Mg Tab PO 01/12/25 08:59 325 mg DAILY KENNY Administration Fluticasone Furoate 1 puffs 12/13/24 09:00 12/14/24 08:06 Fluticasone Furoate 100mcg 14 Puffs/Inhaler INH 01/12/25 08:59 1 puffs DAILY KENNY Administration Guaifenesin 600 mg 12/12/24 21:42 12/14/24 08:08 Guaifenesin 600 Mg Tabcr PO 01/11/25 21:41 600 mg Q12 KENNY Administration Hydralazine HCl 10 mg 12/12/24 21:42 12/14/24 08:07 Hydralazine 10 Mg Tab PO 01/11/25 21:41 10 mg BID KENNY Administration Hydrochlorothiazide 12.5 mg 12/13/24 09:00 12/14/24 08:07 Hydrochlorothiazide 25 Mg Tab PO 01/12/25 08:59 12.5 mg DAILY KENNY Administration Ampicillin Sodium/Sulbactam Sodium 3,000 mg in 100 mls @ 200 mls/hr 12/12/24 21:00 12/14/24 08:38 Unasyn IV 12/14/24 20:59 Infused Q12H [facility] Infusion Insulin Aspart 0 units 12/13/24 12:15 12/14/24 11:41 Insulin Aspart Per Unit Charge SC 01/12/25 12:14 Not Given ACHS [facility] Insulin Glargine 0 units 12/13/24 21:00 12/13/24 21:09 Lantus Per Unit Charge SC 01/12/25 20:59 Not Given HS [facility] Protocol Lisinopril 20 mg 12/13/24 09:00 12/13/24 07:55 Lisinopril 20 Mg Tab PO 01/12/25 08:59 20 mg DAILY KENNY Administration Magnesium Oxide 400 mg 12/13/24 09:00 12/14/24 08:08 Magnesium Oxide 400 Mg Tab PO 01/12/25 08:59 400 mg DAILY KENNY Administration Nifedipine 60 mg 12/13/24 09:00 12/14/24 08:07 Nifedipine Extended Rel 30 Mg Tabcr PO 01/12/25 08:59 60 mg DAILY KENNY Administration Umeclidinium/Vilanterol 1 puffs 12/13/24 09:00 12/14/24 08:06 Umeclidinium/Vilanterol 62.5/25mcg 7 Puffs/Inhaler INH 01/12/25 08:59 1 puffs DAILY KENNY Administration NPO Date Last Intake of Fluids: 12/13/24 Time Last Intake of Fluids: 23:00 Date Last Intake of Solids: 12/13/24 Time Last Intake of Solids: 23:00 Past Medical History Medical History H/O sigmoidoscopy Past Family History Family History Mother Heart disease Hypertension Stroke Sister Cancer Diabetes Brother Lung cancer Father Alcoholism Past Surgical History Surgical History History of removal of ovarian cyst Hx of cholecystectomy H/O ventral hernia repair H/O esophagogastroduodenoscopy Hx of colonoscopy Social History Smoking Status: Former smoker Do You Dip or Chew Tobacco: No Hx Alcohol Use: No Hx Substance Use: No Physical Exam Vital Signs Last Vital Signs Temp 98.1 F 12/14/24 12:52 Pulse 93 H 12/14/24 12:52 Resp 24 12/14/24 12:52 BP 112/56 L 12/14/24 12:52 Pulse Ox 98 12/14/24 12:52 O2 Del Method Other 12/14/24 14:56 O2 Flow Rate 5 12/14/24 12:52 FiO2 30 12/12/24 16:21 ENMT Mouth: no dentition abnormality Thyromental Distance: > or= 3.5 Finger Breadths Mallampati Class: III Neck normal visual inspection Respiratory normal respiratory effort Auscultation: lungs clear to auscultation bilaterally Cardiovascular Rate/Rhythm: regular rate and regular rhythm Neurologic moves all extremities Motor/Sensory: no sensory deficit Psychiatric Orientation: alert and oriented x 3 Testing Laboratory Results 12/14/24 07:29 12/14/24 07:29 PT 11.4 Seconds (9.0-12.0) 12/12/24 15:36 INR 1.1 (0.9-1.1) 12/12/24 15:36 APTT 34 Seconds (21-31) H 12/12/24 15:36 Urine Color Yellow 12/13/24 01:27 Urine Appearance Cloudy (Clear) A 12/13/24 01:27 Urine pH 5.5 (4.5-7.5) 12/13/24 01:27 Ur Specific [place] 1.020 (1.000-1.030) 12/13/24 01:27 Urine Protein 2+ (Negative) H 12/13/24 01:27 Urine Glucose (UA) Negative (Negative) 12/13/24 01:27 Urine Ketones Negative (Negative) 12/13/24 01:27 Urine Nitrite Negative (Negative) 12/13/24 01:27 Ur Leukocyte Esterase Trace (Negative) H 12/13/24 01:27 12/12/24 15:36 Aerobic Blood Culture - Preliminary Blood No growth in Aerobic bottle after 24 hours. Anaerobic Blood Culture - Preliminary No growth in Anaerobic bottle after 24 hours. 12/12/24 15:38 Aerobic Blood Culture - Preliminary Blood No growth in Aerobic bottle after 24 hours. Anaerobic Blood Culture - Preliminary No growth in Anaerobic bottle after 24 hours. 12/14/24 12/14/24 11:52 07:36 POC Glucose 131 H 133 H Electrocardiogram Date: 12/12/24 Findings: + CESAR @
--- NOTE | 2024-12-14 15:31 | Procedure Note ---
Procedure Note: Bronchoscopy Procedure PREOPERATIVE DIAGNOSIS: Right lung atelectasis POSTOPERATIVE DIAGNOSIS: Right lung atelectasis PROCEDURE PERFORMED: Flexible fiberoptic bronchoscopy with [bronchoalveolar lavage, transbronchial biopsies, brushings], EBUS with FNA COMPLICATIONS: None. ANESTHESIA: General Anesthesia with anesthesiology present INDICATION: Right lung atelectasis, concern for malignancy PROCEDURE: Informed consent was obtained and signed and witnessed and placed in the chart. Patient was brought to the operating room and underwent general anesthesia with ET tube. Bronchoscope was advanced into the airways, the lower one third of the trachea was examined. Trachea had normal caliber, short alber was sharp. The bronchoscope was then advanced into the left mainstem, there were some thin secretions appreciated, the left upper lobe, lingula and left lower lobe were visualized along with subsegments. No endobronchial lesions, no extrinsic compression, normal lung anatomy with normal appearing mucosa was appreciated. Bronchoscope was retracted back to the alber. The bronchoscope was then inserted into the right mainstem bronchus. Immediately upon entering the right mainstem bronchus the mucosa appeared abnormal with cobblestone appearance. The right mainstem was patent. The right upper lobe was shut off, there were tumor cells appreciated and abnormal mucosa and extensive extrinsic compression completely occluding the right upper lobe. The right middle lobe was almost completely occluded by extrinsic compression. Mucosa again appeared very abnormal with cobblestoning appearance. The right lower lobe had significant stenosis, almost completely occluded due to extrinsic compression. Abnormal appearing mucosa again appreciated. BAL was performed in the right lower lobe. Bronchial brushings were obtained from the right lower lobe. Forceps were used to biopsy the abnormal appearing mucosa at the opening of the stenosed right upper lobe with 1 biopsy performed. The patient had significant bleeding after this biopsy, cold saline and epinephrine were used to achieve hemostasis. The EBUS scope was then advanced into the airway. The left airways were examined under ultrasound, no pathologically enlarged lymph nodes appreciated in L11 or L10. Station 7 from the left was enlarged and FNA x 4 was performed with 19-gauge needle. Adequate specimen obtained. Atypical cells were present.. When performing EBUS on the right side, there is extensive atelectatic lung appreciated under ultrasound, there is an area adjacent to the right upper lobe that appears as though it is a very large lymph node or mass. FNA x 3 was performed of the right upper lobe lesion with adequate specimen obtained. After EBUS the traditional bronchoscope was advanced back into the airways to evaluate for any evidence of bleeding. Biopsy sites from station 7, forceps biopsies and right upper lobe were visualized. No active bleeding. Bronchoscope was retracted and procedure was terminated. Specimens were sent to the lab for cyto-/micro. Estimated blood loss: 5 mL Recommendations: Follow-up micro, cytology and pathology Follow-up chest x-ray [facility] [place] Procedure Codes (Charges) Pulmonary/Thoracic Procedure 1: Pulmonary and Thoracic: 14008 Bronchoscopy, w/EBUS 1 or 2 mediastinal Procedure 2: Pulmonary and Thoracic: 70042 Bronchoscopy w bronchial or endobronchial bx Procedure 3: Pulmonary and Thoracic: 74745 Dx bronchoscopy/wash
--- NOTE | 2024-12-14 15:32 | Procedure Note ---
Procedure Note: Bronchoscopy Procedure Procedure: Diagnostic therapeutic ultrasound-guided catheter thoracentesis Business Process Specialist: Dr. Norma Jordan Indication: Pleural effusion Consent: Signed by patient and verified with timeout prior to procedure Anesthesia: 1% lidocaine without epinephrine local. Procedure: Consent was verified and timeout performed. Appropriate imaging studies were reviewed prior to the procedure. Patient was placed in a seated position and limited thoracic ultrasound was performed of the right chest. See separate imaging. Appropriate site above the diaphragm for thoracentesis was selected. The skin was prepped and draped in normal sterile fashion. Lidocaine was used for local analgesia. Fluid was aspirated via the finder needle. A small skin koby was made with the scalpel and the catheter over the needle apparatus was advanced over the rib into the pleural space. Using the syringe one-way valve system, a total of 1500 mL's of yellow fluid was removed. The catheter was removed and observed to be intact. A sterile dressing was applied. Post procedure chest x-ray was ordered. Fluid was sent for labs, culture and cytology. Complications: None Blood loss: None [facility] Procedure Codes (Charges) Pulmonary/Thoracic Procedure 1: Pulmonary and Thoracic: 23754 Thoracentesis w/o imaging
[2024-12-14 16:03] LABS: Appearance Pleural Fluid Hazy; Color Pleural Fluid Yellow; RBC Pleural Fluid Auto 5000 /uL; Source Pleural Fluid Right Lung; WBC Pleural Fluid Auto 491 /uL
[2024-12-14 16:18] LABS: Albumin Level 2.8 gm/dl (3.4-5.0); Bilirubin,Total 0.3 mg/dl (0.2-1.0); Total Protein 5.7 gm/dl (6.0-8.3)
[2024-12-14 16:37] LABS: Hematocrit (blood only) 29.2 % (37.0-47.0); Hemoglobin 9.3 g/dl (12.0-16.0); Mean Corpuscular Hemoglobin 28.4 pg (25.0-34.0); Mean Corpuscular Volume 89.3 fL (80.0-100.0); Platelet Count 292 K/uL (130-400); RDW Standard Deviation 40.6 fL (36.4-46.3); Red Blood Count 3.27 M/uL (4.20-5.40); White Blood Count 8.44 K/ul (4.8-10.8)
--- NOTE | 2024-12-14 17:03 | Anesthesiology Progress Note ---
Date of Service December 14, 2024 Anesthesia Post Procedure Vital Signs Vital Signs: Temp Pulse Pulse Resp BP Pulse Ox O2 Del Method 12/14/24 16:55 36.3 C L 71 20 102/51 L 95 Nasal Cannula 12/14/24 16:45 79 20 103/45 L 94 Nasal Cannula 12/14/24 16:40 75 18 92/49 L 94 Nasal Cannula 12/14/24 16:30 72 18 98/48 L 94 Nasal Cannula 12/14/24 16:20 75 22 104/55 L 94 Nasal Cannula 12/14/24 16:10 69 23 104/47 L 94 Nasal Cannula 12/14/24 16:00 36.3 C L 72 21 97/46 L 97 Nasal Cannula 12/14/24 15:50 80 23 101/53 L 98 Nasal Cannula 12/14/24 15:40 75 23 102/45 L 94 Oxymask 12/14/24 15:30 74 21 102/48 L 98 Oxymask 12/14/24 15:20 72 26 H 108/51 L 97 Oxymask 12/14/24 15:13 36.3 C L 74 24 108/48 L 95 Oxymask 12/14/24 14:56 Other 12/14/24 12:52 36.7 C 93 H 24 112/56 L 98 Nasal Cannula 12/14/24 11:14 36.4 C L 91 H 23 112/56 L 95 Nasal Cannula 12/14/24 08:15 Nasal Cannula 12/14/24 07:16 65 12 98 Nasal Cannula 12/14/24 03:52 36.5 C 61 18 115/55 L 99 Nasal Cannula 12/13/24 23:41 Nasal Cannula 12/13/24 22:34 36.8 C 65 18 107/58 L 99 Nasal Cannula 12/13/24 20:00 Nasal Cannula 12/13/24 19:47 67 19 97 Nasal Cannula 12/13/24 19:17 36.6 C 71 18 119/57 L 98 Free Flow/Blow-by O2 Flow Rate 12/14/24 16:55 3 12/14/24 16:45 3 12/14/24 16:40 3 12/14/24 16:30 3 12/14/24 16:20 3 12/14/24 16:10 3 12/14/24 16:00 4 12/14/24 15:50 4 12/14/24 15:40 4 12/14/24 15:30 6 12/14/24 15:20 11 12/14/24 15:13 11 12/14/24 14:56 12/14/24 12:52 5 12/14/24 11:14 5 12/14/24 08:15 4 12/14/24 07:16 5 12/14/24 03:52 5 12/13/24 23:41 12/13/24 22:34 5 12/13/24 20:00 4 12/13/24 19:47 5 12/13/24 19:17 5 Transfer of Care Handoff Completed per policy Notes Mental Status: alert / awake / arousable Patient Amnestic to Procedure: Yes Nausea / Vomiting: adequately controlled Pain: adequately controlled Airway Patency, RR, SpO2: stable & adequate BP & HR: stable & adequate Hydration State: stable & adequate Anesthetic Complications: no major complications apparent
--- NOTE | 2024-12-14 17:05 | XRay Report ---
Technique: A frontal view of the chest was obtained Comparison is made to the chest CT dated 12/12/2024 Findings: There is unchanged complete opacification of the right hemithorax. The heart size is within normal limits. No left pleural effusion or pneumothorax is seen. There is an unchanged small nodule in the left midlung No fracture is noted. 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 Unchanged complete opacification of the right hemithorax 2. Unchanged small left midlung nodule ACT 112: Positive. There are findings on this exam that require communication between the performing entity and the patient following Patient Test Result Information Act ([place] ACT 112) guidelines. Electronically signed by Jack Cueto 12-14-2024 5:05 PM
[2024-12-14] MEDS: LIDOCAINE VISCOUS 2% 100ML BOTTLE NAE ONE (17:34)
[2024-12-14] MEDS: TRANEXAMIC ACID 100 MG/ML 10 ML VIAL INSTIL ONE (17:34)
[2024-12-14] MEDS: SODIUM CHLORIDE 0.9% 500 ML IV SCH (17:35)
--- NOTE | 2024-12-15 07:45 | Pharmacy Report ---
Pharmacy Glycemic Short Note 2 - Date of Service December 15, 2024 - Glycemic Short BSG Results (Last 24 hours): 12/14/24 12/14/24 12/14/24 07:29 07:36 11:52 Glucose 108 H POC Glucose 133 H 131 H 12/14/24 12/14/24 12/15/24 15:27 20:04 07:28 Glucose POC Glucose 160 H 172 H 122 H OUTPATIENT ANTIDIABETIC REGIMEN: * Lantus 10 units SQ QPM * HbA1c 6.0% (11/09/24) ASSESSMENT: 12/15: * Patient received total of 6 units of insulin yesterday, of which 5 units were basal insulin * Was NPO fro bronch yesterday, diet resumed now * Continue same parameters today 12/13 * Danni is an 84 year old female admitted with shortness of breath and a history of insulin dependent type 2 diabetes mellitus. Pharmacy has been consulted to assist with glycemic management while inpatient. * Fasting BSG this AM acceptable, BSGs trending up with lunchtime, will add a basal scale at bedtime (up to home dose) if BSGs are elevated. * NovoLog at a weight based stress of 1.5. She is receiving Unasyn for empiric pneumonia coverage. PLAN FOR INPATIENT GLYCEMIC CONTROL: * Hold outpatient oral diabetes medications * Basal insulin * Lantus 0-10 units SQ HS * Bolus insulin * NovoLog per scale ACHS or Q6hrs while NPO * Goal Range: Low 120 mg/dL - High 160 mg/dL * Correction Factor: 50 mg/dL/unit * Nutritional / Prandial insulin per carb ratio of 1 unit per 15 grams CHO consumed
--- NOTE | 2024-12-15 08:14 | XRay Report ---
EXAM: XR chest 1V portable CLINICAL HISTORY: post thoracentesis and bronch TECHNIQUE: X-ray image of the chest obtained in AP projection. COMPARISON: X-ray dated 12/14/2024 FINDINGS: Pulmonary Parenchyma: Unchanged complete opacification of right hemithorax. Unchanged small nodular opacity in left mid zone likely healed granuloma. No evidence of left pleural effusion or pleural thickening. Heart and Mediastinum: Heart size and shape are normal. No mediastinal widening or masses. No hilar or mediastinal lymphadenopathy. Bony Thorax: Bony thorax appears intact without fractures or deformities. Degenerative changes in bilateral shoulder joints. Soft Tissues: Soft tissues overlying the chest wall are unremarkable. IMPRESSION: 1. Unchanged complete opacification of right hemithorax. 2. Unchanged small nodular opacity in left mid zone likely healed granuloma. 3. No significant interval changes. Electronically signed by Kwadwo Gaines 12-15-2024 08:13 AM
[2024-12-15] MEDS: AMPICILLIN/SULBACTAM SOD 3,000 MG/100 ML BAG IV SCH (08:26)
[2024-12-15 08:44] LABS: Lymphocytes, Fluid 80 %; Mono,Macrophage,Mesothelial 16 %; Neutrophils, Fluid 4 %
[2024-12-15 09:54] LABS: Hematocrit (blood only) 27.3 % (37.0-47.0); Hemoglobin 8.5 g/dl (12.0-16.0); Immature Granulocytes # (auto) 0.03 K/uL (0.01-0.20); Immature Granulocytes % (auto) 0.4 %; Mean Corpuscular Hemoglobin 27.5 pg (25.0-34.0); Mean Corpuscular Volume 88.3 fL (80.0-100.0); Platelet Count 309 K/uL (130-400); RDW Standard Deviation 41.1 fL (36.4-46.3); Red Blood Count 3.09 M/uL (4.20-5.40); White Blood Count 7.34 K/ul (4.8-10.8)
[2024-12-15 10:01] LABS: Anion Gap 6.0 (3-11); Blood Urea Nitrogen 57.0 mg/dl (6-23); Calcium 8.6 mg/dl (8.6-10.3); Carbon Dioxide 30.0 mmol/L (21-32); Chloride 105.0 mmol/L (98-107); Creatinine Clr Calc Pharmacy 19.4 ml/min; Glucose 156.0 mg/dl (70-99(Fasting)); Magnesium 2.2 mg/dl (1.7-2.4); Potassium 5.2 mmol/L (3.5-5.1); Sodium 141.0 mmol/L (136-145)
--- NOTE | 2024-12-15 10:51 | Hospitalist Progress Note ---
Date of Service December 15, 2024 Assessment & Plan (1) Acute dyspnea: (2) Pleural effusion: (3) Adenocarcinoma of rectum: (4) Iron deficiency anemia: (5) Diabetes mellitus: (6) HTN (hypertension): (7) HLD (hyperlipidemia): (8) History of CVA (cerebrovascular accident): (9) Atrial fibrillation: (10) Anticoagulant long-term use: (11) MOMO (obstructive sleep apnea): (12) COPD (chronic obstructive pulmonary disease): (13) Depression with anxiety: (14) Osteoporosis: Plan #right pleural effusion #right hilar mass #hypoxemic respiratory failure #COPD - admit to PCU, pulmonary consult, initiate Unasyn for postobstructive pneumonia empiric coverage - Mucinex, DuoNeb, albuterol, respiratory therapy consult, flutter valve/ICS as tolerated - Tolerated thoracentesis well, resume Eliquis tomorrow. Will clear with pulmonology. Fluid studies pending - Continue Unasyn for post obstructive pneumonia, culutres pending, gram stain unremarkable #hyperkalemia - mild, hold lisinopril, DC LR and start normal saline at 80cc/HR - recheck morning lab - consider Lokelma if this is any higher - lisinopril on hold, potassium level trending downward. Will continue to monitor #G[place]KITO - provide additional maintenance fluid although will start at 80 cc/h and resuscitate gently given her significant pleural effusion - expect she will need more significant volume expansion after the thoracentesis - interval decrease in creatinine, chief if are down by 12 points. In the setting of poor oral intake and thoracentesis - continue to monitor closely, urinalysis when available. #MOMO - has not tolerated CPAP/BiPAP in the past, did not tolerate here - continuous pulse ox, RT consult, oxygen support as above #atrial fibrillation - rate controlled at this time, telemetry monitoring - typically 98466 no sustained tachycardia - Rate controlled at this time #type 2 diabetes - blood sugars fairly well-controlled, will check blood sugars AC, continue sliding scale - see pharmacy note for glycemic management - within goal range - pharmacy consult for glycemic control, within goal range #hypertension - hold lisinopril given mild hyperkalemia, continue nifedipine, hydralazine, HCTZ #hyperlipidemia - hold statin for the short-term #iron deficiency anemia - continue supplement #chronic anticoagulation - hold apixaban pending procedure #history of adenocarcinoma of the rectum - reportedly in remission, noted for history #history of CVA - right hemiparesis, PT and OT consult #depression/anxiety - continue citalopram #prophylaxis - SCDs #CODE STATUS - full code per her wishes, discussed at the bedside with her and her daughter Admission and Anticipated Discharge Date Admission Date: December 12, 2024 Subjective doing better this morning. Breathing is much more comfortable. Nonlabored. Tolerated the thoracentesis procedure well yesterday. No new complaints or concerns per patient. Up had breakfast doing pretty well with that. No problem with the limitations. Nursing staff reports she is doing quite well, markedly improved after thoracentesis. Diastolic pressure is a little bit on the low side. Physical Exam Physical Exam: Physical examination: General: Well-appearing, well-nourished and not in acute distress. lying on her right side hospital bed HEENT: Normocephalic, atraumatic. Extraocular movements intact. Sclera are nonicteric. No JVD appreciated. Skin: Warm and dry. No rashes appreciated. No jaundice appreciated. Lymphatic: No pathologic/enlarged lymph nodes palpated in the neck, axilla. Cardiovascular: Heart is a regular rate and rhythm, no murmurs appreciated on my exam. No significant lower extremity edema. Lungs: lung sounds absent on the right, good air movement on the left with no expiratory phase wheezing Abdomen: Nondistended, nontender to palpation. No masses appreciated. Musculoskeletal: Normal muscle mass and tone. No gross joint deformity abnormalities. No effusions appreciated. Neurologic: Awake and alert, oriented. CN II through XII are grossly intact. Speech is fluent. Nonfocal exam. Psychiatric: Appropriate cooperative during my exam. Results & Data Results & Data Vital Signs (Past 12 Hours) Vital Signs Temp Pulse Resp BP Pulse Ox O2 Del Method O2 Flow Rate 12/15/24 09:36 Nasal Cannula 2 12/15/24 08:00 36.6 C 62 18 102/42 L 93 Nasal Cannula 3 12/15/24 07:04 67 16 95 Nasal Cannula 3 12/15/24 03:57 36.6 C 95 H 18 102/42 L 94 Nasal Cannula 3 12/14/24 23:12 36.5 C 95 H 18 108/54 L 96 Nasal Cannula 3 Laboratory Results 12/14/24 Unknown Gram Stain - Final Bronch Wash,Right Lower Lobe Bronchial Culture - Pending 12/14/24 Unknown Gram Stain - Final Pleural Fluid,Right Aerobic and Anaerobic Culture - Pending 12/12/24 15:36 Aerobic Blood Culture - Preliminary Blood No growth in Aerobic bottle after 48 hours. Anaerobic Blood Culture - Preliminary No growth in Anaerobic bottle after 48 hours. 12/12/24 15:38 Aerobic Blood Culture - Preliminary Blood No growth in Aerobic bottle after 48 hours. Anaerobic Blood Culture - Preliminary No growth in Anaerobic bottle after 48 hours. 12/14/24 Unknown Acid Fast Bacilli Smear - Pending Lung Acid Fast Bacilli Culture - Pending 12/14/24 Unknown Acid Fast Bacilli Smear - Pending Bronch Wash,Right Lower Lobe Acid Fast Bacilli Culture - Pending 12/15/24 12/15/24 12/14/24 08:15 07:28 Unknown WBC 7.34 RBC 3.09 L Hgb 8.5 L Hct 27.3 L MCV 88.3 MCH 27.5 MCHC 31.1 L RDW Std Deviation 41.1 RDW Coeff of Maurilio 12.8 Plt Count 309 MPV 10.1 Immature Gran % (Auto) 0.4 Neut % (Auto) 81.1 Lymph % (Auto) 10.2 Emanuel % (Auto) 7.2 Eos % (Auto) 0.7 Baso % (Auto) 0.4 Neut # (Auto) 5.95 Lymph # (Auto) 0.75 L Emanuel # (Auto) 0.53 Eos # (Auto) 0.05 Baso # (Auto) 0.03 Immature Gran # (Auto) 0.03 Sodium 141 Potassium 5.2 H Chloride 105 Carbon Dioxide 30 Anion Gap 6 BUN 57 H Creatinine 1.71 H D Est Cr Clr Drug Dosing 19.4 eGFR 29.18 BUN/Creatinine Ratio 33.3 H Glucose 156 H POC Glucose 122 H Calcium 8.6 Magnesium 2.2 Total Bilirubin Lactate Dehydrogenase C-Reactive Protein 11.26 H Total Protein Albumin Fluid Neutrophils % 4 Fluid Lymphocytes % 80 Fluid Meso/Macro/Emanuel % 16 Fluid Slide Review Fluid Comment Pleural Fluid Source Right Lung Pleural Color Yellow Pleural Appearance Hazy Pleural WBC (Auto) 491 Pleural RBC (Auto) 5000 Pleural Total Protein 3.4 Pleural LDH 392 Pleural Glucose 124 Pleural Amylase 27 12/14/24 12/14/24 12/14/24 20:04 16:23 15:39 WBC 8.44 RBC 3.27 L Hgb 9.3 L Hct 29.2 L MCV 89.3 MCH 28.4 MCHC 31.8 L RDW Std Deviation 40.6 RDW Coeff of Maurilio 12.4 Plt Count 292 MPV 9.9 Immature Gran % (Auto) Neut % (Auto) Lymph % (Auto) Emanuel % (Auto) Eos % (Auto) Baso % (Auto) Neut # (Auto) Lymph # (Auto) Emanuel # (Auto) Eos # (Auto) Baso # (Auto) Immature Gran # (Auto) Sodium Potassium Chloride Carbon Dioxide Anion Gap BUN Creatinine Est Cr Clr Drug Dosing eGFR BUN/Creatinine Ratio Glucose POC Glucose 172 H Calcium Magnesium Total Bilirubin 0.3 Lactate Dehydrogenase 281 H C-Reactive Protein Total Protein 5.7 L Albumin 2.8 L Fluid Neutrophils % Fluid Lymphocytes % Fluid Meso/Macro/Emanuel % Fluid Slide Review Fluid Comment Pleural Fluid Source Pleural Color Pleural Appearance Pleural WBC (Auto) Pleural RBC (Auto) Pleural Total Protein Pleural LDH Pleural Glucose Pleural Amylase 12/14/24 12/14/24 15:27 11:52 WBC RBC Hgb Hct MCV MCH MCHC RDW Std Deviation RDW Coeff of Maurilio Plt Count MPV Immature Gran % (Auto) Neut % (Auto) Lymph % (Auto) Emanuel % (Auto) Eos % (Auto) Baso % (Auto) Neut # (Auto) Lymph # (Auto) Emanuel # (Auto) Eos # (Auto) Baso # (Auto) Immature Gran # (Auto) Sodium Potassium Chloride Carbon Dioxide Anion Gap BUN Creatinine Est Cr Clr Drug Dosing eGFR BUN/Creatinine Ratio Glucose POC Glucose 160 H 131 H Calcium Magnesium Total Bilirubin Lactate Dehydrogenase C-Reactive Protein Total Protein Albumin Fluid Neutrophils % Fluid Lymphocytes % Fluid Meso/Macro/Emanuel % Fluid Slide Review Fluid Comment Pleural Fluid Source Pleural Color Pleural Appearance Pleural WBC (Auto) Pleural RBC (Auto) Pleural Total Protein Pleural LDH Pleural Glucose Pleural Amylase Diagnostic Findings Chest X-Ray 12/15/24 07:00 EXAM: XR chest 1V portable CLINICAL HISTORY: post thoracentesis and bronch TECHNIQUE: X-ray image of the chest obtained in AP projection. COMPARISON: X-ray dated 12/14/2024 FINDINGS: Pulmonary Parenchyma: Unchanged complete opacification of right hemithorax. Unchanged small nodular opacity in left mid zone likely healed granuloma. No evidence of left pleural effusion or pleural thickening. Heart and Mediastinum: Heart size and shape are normal. No mediastinal widening or masses. No hilar or mediastinal lymphadenopathy. Bony Thorax: Bony thorax appears intact without fractures or deformities. Degenerative changes in bilateral shoulder joints. Soft Tissues: Soft tissues overlying the chest wall are unremarkable. IMPRESSION: 1. Unchanged complete opacification of right hemithorax. 2. Unchanged small nodular opacity in left mid zone likely healed granuloma. 3. No significant interval changes. Electronically signed by Kwadwo Gaines 12-15-2024 08:13 AM PG Care Time/CCT Total # of Minutes Spent Total Time Spent with Patient: Total time spent is greater than 50% in coordination of care (as documented) at patient's floor/unit and/or counseling patient: Coding Level of Care Code 51482 SUB INP/OBS CARE 2/35MIN Diagnoses Acute dyspnea R06.00 Pleural effusion J90 Adenocarcinoma of rectum C20 Iron deficiency anemia D50.9 Diabetes mellitus E11.9 HTN (hypertension) I10 HLD (hyperlipidemia) E78.5 History of CVA (cerebrovascular accident) Z86.73 Atrial fibrillation I48.91 Anticoagulant long-term use Z79.01 MOMO (obstructive sleep apnea) G47.33 COPD (chronic obstructive pulmonary disease) J44.9 Depression with anxiety F41.8 Osteoporosis M81.0
--- NOTE | 2024-12-15 15:30 | Pulmonology Progress Note ---
Date of Service December 15, 2024 Assessment & Plan (1) Pneumonia: (2) Hypoxic respiratory failure: (3) Malignant pleural effusion: (4) Small cell lung cancer: Plan Patient is an 84-year-old female with heavy tobacco use history. Pulmonary has been consulted during her hospital stay for right hemithorax opacification. The patient underwent thoracentesis 12/14/2024: Malignant cells are present, consistent with metastatic small cell carcinoma. Underwent bronchoscopy 12/14, all samples were positive for small cell carcinoma. Problems: Metastatic small cell carcinoma Heavy tobacco use history COPD Hypoxic respite failure Recommendation/plan: Please consult oncology and palliative care. Patient will need PET/CT and MRI of the brain. Small cell is usually metastatic on presentation. Patient may resume Eliquis. Continue antibiotics for total of 7 days to cover for postobstructive pneumonia. Continue bronchodilators and pulmonary toilet. Thank you for this consult. I will sign off at this time. Please call me with any questions. Admission and Anticipated Discharge Date Admission Date: December 12, 2024 Subjective Patient was examined today at bedside. Resting comfortably in bed. Not having any hemoptysis. Breathing is unchanged. Review of Systems Review of Systems: A 12 point review of systems was obtained in detail. Negative except as noted in HPI. Physical Exam Physical Exam: Physical examination: General: Frail appearing, sitting at edge of bed, well-kept, not in distress. HEENT: Normocephalic, atraumatic. Extraocular movements intact. Sclera are nonicteric. No JVD appreciated. Skin: Warm and dry. No rashes appreciated. No jaundice appreciated. Cardiovascular: Heart is a regular rate and rhythm, no murmurs appreciated on my exam. No significant lower extremity edema. Lungs: Absent breath sounds on the right, diminished on the left. On nasal cannula. Nontachypneic. Abdomen: Nondistended, nontender to palpation. Musculoskeletal: Normal muscle mass and tone. No gross joint deformity abnormalities. No effusions appreciated. Neurologic: Awake and alert, oriented. CN II through XII are grossly intact. Speech is fluent. Nonfocal exam. Psychiatric: Appropriate cooperative during my exam. Results & Data Results & Data Vital Signs (Past 12 Hours) Vital Signs Temp Pulse Resp BP Pulse Ox O2 Del Method O2 Flow Rate 12/15/24 12:02 68 18 93 Nasal Cannula 3 12/15/24 11:32 36.7 C 72 16 108/53 L 97 Nasal Cannula 3 12/15/24 09:36 Nasal Cannula 2 12/15/24 08:00 36.6 C 62 18 102/42 L 93 Nasal Cannula 3 12/15/24 07:04 67 16 95 Nasal Cannula 3 12/15/24 03:57 36.6 C 95 H 18 102/42 L 94 Nasal Cannula 3 PG Care Time/CCT Total # of Minutes Spent Total Time Spent with Patient: Total time spent is greater than 50% in coordination of care (as documented) at patient's floor/unit and/or counseling patient: Coding Level of Care Code 44076 SUB INP/OBS CARE 2/35MIN Diagnoses Pneumonia J18.9 Hypoxic respiratory failure J96.91 Malignant pleural effusion J91.0 Small cell lung cancer C34.90
[2024-12-16 06:28] LABS: Hematocrit (blood only) 27.8 % (37.0-47.0); Hemoglobin 8.9 g/dl (12.0-16.0); Immature Granulocytes # (auto) 0.01 K/uL (0.01-0.20); Immature Granulocytes % (auto) 0.1 %; Mean Corpuscular Hemoglobin 28.3 pg (25.0-34.0); Mean Corpuscular Volume 88.5 fL (80.0-100.0); Platelet Count 284 K/uL (130-400); RDW Standard Deviation 40.7 fL (36.4-46.3); Red Blood Count 3.14 M/uL (4.20-5.40); White Blood Count 6.98 K/ul (4.8-10.8)
[2024-12-16 06:49] LABS: Anion Gap 8.0 (3-11); Calcium 8.6 mg/dl (8.6-10.3); Carbon Dioxide 28.0 mmol/L (21-32); Chloride 106.0 mmol/L (98-107); Magnesium 2.2 mg/dl (1.7-2.4); Potassium 4.7 mmol/L (3.5-5.1); Sodium 142.0 mmol/L (136-145)
[2024-12-16 06:54] LABS: Blood Urea Nitrogen 54.0 mg/dl (6-23); Creatinine Clr Calc Pharmacy 22.4 ml/min; Glucose 86.0 mg/dl (70-99(Fasting))
--- NOTE | 2024-12-16 11:59 | Hospitalist Progress Note ---
Date of Service December 16, 2024 Assessment & Plan (1) Acute dyspnea: (2) Pleural effusion: (3) Adenocarcinoma of rectum: (4) Iron deficiency anemia: (5) Diabetes mellitus: (6) HTN (hypertension): (7) HLD (hyperlipidemia): (8) History of CVA (cerebrovascular accident): (9) Atrial fibrillation: (10) Anticoagulant long-term use: (11) MOMO (obstructive sleep apnea): (12) COPD (chronic obstructive pulmonary disease): (13) Depression with anxiety: (14) Osteoporosis: (15) Small cell lung cancer: Plan #right pleural effusion #right hilar mass #hypoxemic respiratory failure #COPD - admit to PCU, pulmonary consult, initiate Unasyn for postobstructive pneumonia empiric coverage - Mucinex, DuoNeb, albuterol, respiratory therapy consult, flutter valve/ICS as tolerated - Tolerated thoracentesis well, resume Eliquis tomorrow. Will clear with pulmonology. Fluid studies pending - Continue Unasyn for post obstructive pneumonia, culutres pending, gram stain unremarkable - Continue supportive cares, continue Unasyn for a total of 7 days #small cell lung cancer - oncology consult placed. All bronchoscopy samples positive - consult to palliative care placed #hyperkalemia - mild, hold lisinopril, DC LR and start normal saline at 80cc/HR - recheck morning lab - consider Lok[facility] if this is any higher - normalized #GUANAKITO - provide additional maintenance fluid although will start at 80 cc/h and resuscitate gently given her significant pleural effusion - expect she will need more significant volume expansion after the thoracentesis - interval decrease in creatinine, chief if are down by 12 points. In the setting of poor oral intake and thoracentesis - gradually improving creatinine, #MOMO - has not tolerated CPAP/BiPAP in the past, did not tolerate here - continuous pulse ox, RT consult, oxygen support as above #atrial fibrillation - rate controlled at this time, telemetry monitoring - typically 44430 no sustained tachycardia - remains Rate controlled at this time #type 2 diabetes - blood sugars fairly well-controlled, will check blood sugars AC, continue sliding scale - see pharmacy note for glycemic management - within goal range - pharmacy consult for glycemic control, within goal range #hypertension - hold lisinopril given mild hyperkalemia, continue nifedipine, hydralazine, HCTZ - isolated lower reading this morning. Will continue to monitor hold antihypertensives if remains low #hyperlipidemia - hold statin for the short-term #iron deficiency anemia - continue supplement #chronic anticoagulation - hold apixaban pending procedure #history of adenocarcinoma of the rectum - reportedly in remission, noted for history #history of CVA - right hemiparesis, PT and OT consult #depression/anxiety - continue citalopram #prophylaxis - SCDs #CODE STATUS - full code per her wishes, discussed at the bedside with her and her daughter Admission and Anticipated Discharge Date Admission Date: December 12, 2024 Subjective doing okay this morning. Breathing was reasonable through the night. She seems a lot more down today. No specific complaints or concerns per patient. Has not been up at the bedside very much at least as of this morning. Small amount of oral intake with breakfast. Briefly reviewed her bronchoscopy results. Will have palliative care and oncology come by. Physical Exam Physical Exam: Physical examination: General: Well-appearing, well-nourished and not in acute distress. lying on her right side hospital bed HEENT: Normocephalic, atraumatic. Extraocular movements intact. Sclera are nonicteric. No JVD appreciated. Skin: Warm and dry. No rashes appreciated. No jaundice appreciated. Lymphatic: No pathologic/enlarged lymph nodes palpated in the neck, axilla. Cardiovascular: Heart is a regular rate and rhythm, no murmurs appreciated on my exam. No significant lower extremity edema. Lungs: lung sounds absent on the right, good air movement on the left with no expiratory phase wheezing Abdomen: Nondistended, nontender to palpation. No masses appreciated. Musculoskeletal: Normal muscle mass and tone. No gross joint deformity abnormalities. No effusions appreciated. Neurologic: Awake and alert, oriented. CN II through XII are grossly intact. Speech is fluent. Nonfocal exam. Psychiatric: Appropriate cooperative during my exam. Results & Data Results & Data Vital Signs (Past 12 Hours) Vital Signs Temp Pulse Pulse Resp BP Pulse Ox O2 Del Method 12/16/24 11:38 36.5 C 82 18 86/46 L 96 Room Air 12/16/24 07:31 36.6 C 65 20 104/48 L 97 Nasal Cannula 12/16/24 07:30 Nasal Cannula 12/16/24 07:00 64 12/16/24 02:39 37.1 C 62 18 102/52 L 96 Nasal Cannula O2 Flow Rate 12/16/24 11:38 12/16/24 07:31 3 12/16/24 07:30 2 12/16/24 07:00 12/16/24 02:39 3 Laboratory Results 12/14/24 Unknown Acid Fast Bacilli Smear - Final Lung Acid Fast Bacilli Culture - Pending 12/14/24 Unknown Gram Stain - Final Bronch Wash,Right Lower Lobe Bronchial Culture - Final No growth 12/14/24 Unknown Gram Stain - Final Pleural Fluid,Right Aerobic and Anaerobic Culture - Preliminary No growth to date. 12/16/24 12/16/24 12/16/24 11:20 07:10 05:57 WBC 6.98 RBC 3.14 L Hgb 8.9 L Hct 27.8 L MCV 88.5 MCH 28.3 MCHC 32.0 RDW Std Deviation 40.7 RDW Coeff of Maurilio 12.7 Plt Count 284 MPV 10.1 Immature Gran % (Auto) 0.1 Neut % (Auto) 74.1 Lymph % (Auto) 15.8 [place] % (Auto) 8.5 Eos % (Auto) 1.1 Baso % (Auto) 0.4 Neut # (Auto) 5.17 Lymph # (Auto) 1.10 L [place] # (Auto) 0.59 Eos # (Auto) 0.08 Baso # (Auto) 0.03 Immature Gran # (Auto) 0.01 Sodium 142 Potassium 4.7 Chloride 106 Carbon Dioxide 28 Anion Gap 8 BUN 54 H Creatinine 1.48 H Est Cr Clr Drug Dosing 22.4 eGFR 34.70 BUN/Creatinine Ratio 36.5 H Glucose 86 POC Glucose 120 H 92 Calcium 8.6 Magnesium 2.2 C-Reactive Protein 11.01 H 12/15/24 12/15/24 20:20 16:27 WBC RBC Hgb Hct MCV MCH MCHC RDW Std Deviation RDW Coeff of Maurilio Plt Count MPV Immature Gran % (Auto) Neut % (Auto) Lymph % (Auto) [place] % (Auto) Eos % (Auto) Baso % (Auto) Neut # (Auto) Lymph # (Auto) [place] # (Auto) Eos # (Auto) Baso # (Auto) Immature Gran # (Auto) Sodium Potassium Chloride Carbon Dioxide Anion Gap BUN Creatinine Est Cr Clr Drug Dosing eGFR BUN/Creatinine Ratio Glucose POC Glucose 116 H 158 H Calcium Magnesium C-Reactive Protein PG Care Time/CCT Total # of Minutes Spent Total Time Spent with Patient: Total time spent is greater than 50% in coordination of care (as documented) at patient's floor/unit and/or counseling patient: Coding Level of Care Code 35470 SUB INP/OBS CARE 2/35MIN Diagnoses Acute dyspnea R06.00 Pleural effusion J90 Adenocarcinoma of rectum C20 Iron deficiency anemia D50.9 Diabetes mellitus E11.9 HTN (hypertension) I10 HLD (hyperlipidemia) E78.5 History of CVA (cerebrovascular accident) Z86.73 Atrial fibrillation I48.91 Anticoagulant long-term use Z79.01 MOMO (obstructive sleep apnea) G47.33 COPD (chronic obstructive pulmonary disease) J44.9 Depression with anxiety F41.8 Osteoporosis M81.0 Small cell lung cancer C34.90
[2024-12-16 13:02] LABS: Cdiff Toxin A+B Negative Cdiff Toxin (Negative); Cdiff Toxin B Gene (2yr or >) Positive Cdiff Gene (Neg)
[2024-12-16] MEDS: VANCOMYCIN HCL 125 MG CAP PO SCH (17:18)
[2024-12-17 07:11] LABS: Hematocrit (blood only) 28.5 % (37.0-47.0); Hemoglobin 9.3 g/dl (12.0-16.0); Immature Granulocytes # (auto) 0.02 K/uL (0.01-0.20); Immature Granulocytes % (auto) 0.3 %; Mean Corpuscular Hemoglobin 28.5 pg (25.0-34.0); Mean Corpuscular Volume 87.4 fL (80.0-100.0); Platelet Count 307 K/uL (130-400); RDW Standard Deviation 40.1 fL (36.4-46.3); Red Blood Count 3.26 M/uL (4.20-5.40); White Blood Count 6.31 K/ul (4.8-10.8)
[2024-12-17 07:29] LABS: Anion Gap 7.0 (3-11); Blood Urea Nitrogen 44.0 mg/dl (6-23); Calcium 8.6 mg/dl (8.6-10.3); Carbon Dioxide 30.0 mmol/L (21-32); Chloride 105.0 mmol/L (98-107); Creatinine Clr Calc Pharmacy 27.1 ml/min; Glucose 120.0 mg/dl (70-99(Fasting)); Potassium 4.5 mmol/L (3.5-5.1); Sodium 142.0 mmol/L (136-145)
--- NOTE | 2024-12-17 10:14 | Hospitalist Progress Note ---
Date of Service December 17, 2024 Assessment & Plan (1) Acute dyspnea: (2) Pleural effusion: (3) Adenocarcinoma of rectum: (4) Iron deficiency anemia: (5) Diabetes mellitus: (6) HTN (hypertension): (7) HLD (hyperlipidemia): (8) History of CVA (cerebrovascular accident): (9) Atrial fibrillation: (10) Anticoagulant long-term use: (11) MOMO (obstructive sleep apnea): (12) COPD (chronic obstructive pulmonary disease): (13) Depression with anxiety: (14) Osteoporosis: (15) Small cell lung cancer: Plan #right pleural effusion #right hilar mass #hypoxemic respiratory failure #COPD - admit to PCU, pulmonary consult, initiate Unasyn for postobstructive pneumonia empiric coverage - Mucinex, DuoNeb, albuterol, respiratory therapy consult, flutter valve/ICS as tolerated - Tolerated thoracentesis well, resume Eliquis tomorrow. Will clear with pulmonology. Fluid studies pending - Continue Unasyn for post obstructive pneumonia, culutres pending, gram stain unremarkable - Continue supportive cares, continue Unasyn day 4 of 7 #loose stools, history of C. difficile - gene positive, toxin negative. Significant loose stools yesterday. Started oral vancomycin with significant improvement. - CRP modestly elevated yesterday raising concern for fulminant C. difficile colitis. Will continue to monitor clinically #small cell lung cancer - oncology consult placed. All bronchoscopy samples positive - consult to palliative care placed #hyperkalemia - mild, hold lisinopril, DC LR and start normal saline at 80cc/HR - recheck morning lab - consider [facility] if this is any higher - normalized, continue to monitor #GUANAKITO - provide additional maintenance fluid although will start at 80 cc/h and resuscitate gently given her significant pleural effusion - expect she will need more significant volume expansion after the thoracentesis - interval decrease in creatinine, chief if are down by 12 points. In the setting of poor oral intake and thoracentesis - gradually improving creatinine, nearly at baseline this morning, euvolemic on exam #MOMO - has not tolerated CPAP/BiPAP in the past, did not tolerate here - continuous pulse ox, RT consult, oxygen support as above #atrial fibrillation - rate controlled at this time, telemetry monitoring - typically 49091 no sustained tachycardia - remains Rate controlled throughout the last 24 hours #type 2 diabetes - blood sugars fairly well-controlled, will check blood sugars AC, continue sliding scale - see pharmacy note for glycemic management - within goal range - pharmacy consult for glycemic control, within goal range #hypertension - hold lisinopril given mild hyperkalemia, continue nifedipine, hydralazine, HCTZ - isolated lower reading this morning. Will continue to monitor hold antihypertensives if remains low #hyperlipidemia - hold statin for the short-term #iron deficiency anemia - continue supplement #chronic anticoagulation - hold apixaban pending procedure #history of adenocarcinoma of the rectum - reportedly in remission, noted for history #history of CVA - right hemiparesis, PT and OT consult #depression/anxiety - continue citalopram #prophylaxis - SCDs #CODE STATUS - full code per her wishes, discussed at the bedside with her and her daughter Admission and Anticipated Discharge Date Admission Date: December 12, 2024 Subjective resting comfortably this morning. No new complaints or concerns. Breathing has been largely unchanged but slightly labored. Discussed with nursing trying to get up to the bedside a bit more this morning. Loose stools have eased significantly since starting the oral vancomycin. No other urinary changes. No abdominal pain or discomfort. No chest pain or palpitations. Slept well through the night Physical Exam Physical Exam: Physical examination: General: Well-appearing, well-nourished and not in acute distress. lying on her right side hospital bed HEENT: Normocephalic, atraumatic. Extraocular movements intact. Sclera are nonicteric. No JVD appreciated. Skin: Warm and dry. No rashes appreciated. No jaundice appreciated. Lymphatic: No pathologic/enlarged lymph nodes palpated in the neck, axilla. Cardiovascular: Heart is a regular rate and rhythm, no murmurs appreciated on my exam. No significant lower extremity edema. Lungs: lung sounds absent on the right, good air movement on the left with no expiratory phase wheezing Abdomen: Nondistended, nontender to palpation. No masses appreciated. Musculoskeletal: Normal muscle mass and tone. No gross joint deformity abnormalities. No effusions appreciated. Neurologic: Awake and alert, oriented. CN II through XII are grossly intact. Speech is fluent. Nonfocal exam. Psychiatric: Appropriate cooperative during my exam. Results & Data Results & Data Vital Signs (Past 12 Hours) Vital Signs Temp Pulse Pulse Resp BP Pulse Ox O2 Del Method 12/17/24 08:14 122/52 L 12/17/24 08:11 36.6 C 81 20 93/51 L 95 Nasal Cannula 12/17/24 07:44 Nasal Cannula 12/17/24 07:02 78 16 94 Nasal Cannula 12/17/24 02:52 36.4 C L 80 18 105/65 98 Nasal Cannula 12/16/24 22:50 92 H 12/16/24 22:43 36.9 C 84 18 105/59 L 95 Nasal Cannula O2 Flow Rate 12/17/24 08:14 12/17/24 08:11 3 12/17/24 07:44 2 12/17/24 07:02 2 12/17/24 02:52 3 12/16/24 22:50 12/16/24 22:43 3 Laboratory Results 12/14/24 Unknown Gram Stain - Final Pleural Fluid,Right Aerobic and Anaerobic Culture - Preliminary No growth to date. 12/14/24 Unknown Acid Fast Bacilli Smear - Final Bronch Wash,Right Lower Lobe Acid Fast Bacilli Culture - Pending 12/14/24 Unknown Acid Fast Bacilli Smear - Final Lung Acid Fast Bacilli Culture - Pending 12/14/24 Unknown Gram Stain - Final Bronch Wash,Right Lower Lobe Bronchial Culture - Final No growth 12/17/24 12/17/24 12/16/24 07:09 05:33 20:07 WBC 6.31 RBC 3.26 L Hgb 9.3 L Hct 28.5 L MCV 87.4 MCH 28.5 MCHC 32.6 RDW Std Deviation 40.1 RDW Coeff of Maurilio 12.6 Plt Count 307 MPV 10.2 Immature Gran % (Auto) 0.3 Neut % (Auto) 74.9 Lymph % (Auto) 14.9 [place] % (Auto) 8.2 Eos % (Auto) 1.1 Baso % (Auto) 0.6 Neut # (Auto) 4.72 Lymph # (Auto) 0.94 L [place] # (Auto) 0.52 Eos # (Auto) 0.07 Baso # (Auto) 0.04 Immature Gran # (Auto) 0.02 Sodium 142 Potassium 4.5 Chloride 105 Carbon Dioxide 30 Anion Gap 7 BUN 44 H Creatinine 1.22 H Est Cr Clr Drug Dosing 27.1 eGFR 43.76 BUN/Creatinine Ratio 36.1 H Glucose 120 H POC Glucose 142 H 149 H Calcium 8.6 C-Reactive Protein 12.73 H Stl C. diff Tox B Gene Stl C.difficile Tox A&B Stl C. diff [id number] 12/16/24 12/16/24 12/16/24 16:17 11:20 09:41 WBC RBC Hgb Hct MCV MCH MCHC RDW Std Deviation RDW Coeff of Maurilio Plt Count MPV Immature Gran % (Auto) Neut % (Auto) Lymph % (Auto) [place] % (Auto) Eos % (Auto) Baso % (Auto) Neut # (Auto) Lymph # (Auto) [place] # (Auto) Eos # (Auto) Baso # (Auto) Immature Gran # (Auto) Sodium Potassium Chloride Carbon Dioxide Anion Gap BUN Creatinine Est Cr Clr Drug Dosing eGFR BUN/Creatinine Ratio Glucose POC Glucose 151 H 120 H Calcium C-Reactive Protein Stl C. diff Tox B Gene Positive Cdiff Gene A Stl C.difficile Tox A&B Negative Cdiff Toxin Stl C. diff [id number] NEGATIVE PG Care Time/CCT Total # of Minutes Spent Total Time Spent with Patient: Total time spent is greater than 50% in coordination of care (as documented) at patient's floor/unit and/or counseling patient: Coding Level of Care Code 34420 SUB INP/OBS CARE 2/35MIN Diagnoses Acute dyspnea R06.00 Pleural effusion J90 Adenocarcinoma of rectum C20 Iron deficiency anemia D50.9 Diabetes mellitus E11.9 HTN (hypertension) I10 HLD (hyperlipidemia) E78.5 History of CVA (cerebrovascular accident) Z86.73 Atrial fibrillation I48.91 Anticoagulant long-term use Z79.01 MOMO (obstructive sleep apnea) G47.33 COPD (chronic obstructive pulmonary disease) J44.9 Depression with anxiety F41.8 Osteoporosis M81.0 Small cell lung cancer C34.90
--- NOTE | 2024-12-18 06:31 | Electrocardiogram Report ---
Test Reason : Blood Pressure : */* mmHG Vent. Rate : 79 BPM Atrial Rate : * BPM P-R Int : * ms QRS Dur : 92 ms QT Int : 382 ms P-R-T Axes : * 83 84 degrees QTcB Int : 438 ms Atrial fibrillation Anteroseptal infarct , age undetermined Abnormal ECG No previous ECGs available Confirmed by Aleks Virk ([id number]) on 12/18/2024 6:31:12 AM Referred By: Confirmed By: Aleks Virk
[2024-12-18] MEDS: APIXABAN 2.5 MG TAB PO SCH (10:39)
--- NOTE | 2024-12-18 10:55 | XRay Report ---
XR chest 1V portable HISTORY: 84 years-old Female dyspnea COMPARISON: 12/15/2024 chest radiograph, chest CT 12/12/2024 TECHNIQUE: AP view of the chest FINDINGS: Complete opacification of the right hemithorax is unchanged. Heart size is within normal limits. Mild pulmonary emphysema of the left lung with calcified granuloma of the left upper lobe redemonstrated. Left lung is clear. Degenerative changes of the shoulders and spine. IMPRESSION: 1. Unchanged appearance of the chest. 2. Complete opacification of the right hemithorax redemonstrated, better evaluated on the chest CT fr om 12/12/2024 demonstrating right lung consolidation/collapse with pleural effusion. ACT 112: Negative or not required by law. The above report was generated using voice recognition software. It may contain grammatical, syntax o r spelling errors. Electronically signed by: Vincent Padilla M.D. 12/18/2024 10:53 AM
[2024-12-18] MEDS ORDERED: LORazepam 0.5 MG TAB SL PRN (12:56)
[2024-12-18] MEDS: LOPERAMIDE HCL 2 MG CAP PO PRN (13:40)
--- NOTE | 2024-12-18 14:53 | Pharmacy Report ---
Pharmacy Glycemic Short Note 2 - Date of Service December 18, 2024 - Glycemic Short BSG Results (Last 24 hours): 12/17/24 12/17/24 12/18/24 16:20 20:27 07:36 POC Glucose 127 H 162 H 105 H 12/18/24 11:14 POC Glucose 147 H OUTPATIENT ANTIDIABETIC REGIMEN: * Lantus 10 units SQ QPM * HbA1c 6.0% (11/09/24) ASSESSMENT: 12/18: * Danni received a total of 6 units of insulin yesterday (5 units were basal and 1 unit was bolus). BSGs were [phone]/dL. * Fasting BSG was 105mg/dL this morning. Will continue current basal and bolus insulin regimens without change. 12/15: * Patient received total of 6 units of insulin yesterday, of which 5 units were basal insulin * Was NPO fro bronch yesterday, diet resumed now * Continue same parameters today 12/13 * Danni is an 84 year old female admitted with shortness of breath and a history of insulin dependent type 2 diabetes mellitus. Pharmacy has been consulted to assist with glycemic management while inpatient. * Fasting BSG this AM acceptable, BSGs trending up with lunchtime, will add a basal scale at bedtime (up to home dose) if BSGs are elevated. * NovoLog at a weight based stress of 1.5. She is receiving Unasyn for empiric pneumonia coverage. PLAN FOR INPATIENT GLYCEMIC CONTROL: * Hold outpatient oral diabetes medications * Basal insulin * Lantus scale 0-10 units SQ HS * Bolus insulin * NovoLog per scale ACHS or Q6hrs while NPO * Goal Range: Low 120 mg/dL - High 160 mg/dL * Correction Factor: 50 mg/dL/unit * Nutritional / Prandial insulin per carb ratio of 1 unit per 15 grams CHO consumed
--- NOTE | 2024-12-18 15:50 | XRay Report ---
XR chest 1V portable CLINICAL HISTORY: thorocentesis and drainage tube placement COMPARISON STUDY: 12/18/2024 FINDINGS: A right basilar chest tube is now evident. There is persistent complete opacification of th e right hemithorax. The left lung remains generally clear. No pneumothorax is visualized. IMPRESSION: 1. Interval placement of a right-sided chest tube 2. Continued complete opacification of the right hemithorax. ACT 112: Negative or not required by law. Electronically signed by: Miah Barreto M.D. 12/18/2024 3:49 PM
--- NOTE | 2024-12-18 16:58 | Pulmonology Progress Note ---
Date of Service December 18, 2024 Assessment & Plan (1) Pneumonia: (2) Hypoxic respiratory failure: (3) Malignant pleural effusion: (4) Small cell lung cancer: Plan Patient is an 84-year-old female with heavy tobacco use history. Pulmonary has been consulted during her hospital stay for right hemithorax opacification. The patient underwent thoracentesis 12/14/2024: Malignant cells are present, consistent with metastatic small cell carcinoma. Underwent bronchoscopy 12/14, all samples were positive for small cell carcinoma. 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 Given that the pleural fluid was positive and she did find benefit after thoracentesis consideration could be made of PleurX catheter for palliative purposes. Risk and benefit of the procedure explained to the patient in depth. Patient understands and wants to go ahead with the procedures Consent signed, witnessed and put in the chart Will do PleurX catheter later today. Recommended MRI of the brain if not already performed Palliative care consult will be beneficial. I spent more than 50 minutes looking in the chart, images, discussing the plan of care with the patient, RN as well as primary team Please note the above document was generated using voice recognition software. It may contain grammatical, syntax or spelling errors.Any formal questions or concerns about the content, text or information contained within the body of this dictation should be directly addressed to the provider for clarification. Admission and Anticipated Discharge Date Admission Date: December 12, 2024 Subjective 84-year-old female was seen by Dr. Jordan She underwent bronchoscopy as well as right-sided thoracentesis both of which showed small cell lung cancer She did find benefit after taking the fluid out but she is complaining of more shortness of breath At the time of examination she was in some respiratory distress. Her saturation was 96% on 3 L, I went down to 2 L. She is denied any chest pain, no nausea or vomiting Has been having loose bowel movements. Denied any headache or blurry vision Appetite is poor Review of Systems Review of Systems: All systems reviewed & are unremarkable except as noted in Subjective Physical Exam Physical Exam: Constitutional: No acute distress HEENT: EOMI, PERRLA Respiratory system: Decreased air entry on the right side, no wheeze, no rhonchi, positive crackles more on the left CVS: S1-S2 positive, no murmurs or gallops Abdomen: Soft, nontender, nondistended, positive bowel sounds x4 Extremities: +2 pulses bilaterally radialis/ dorsalis pedis, no cyanosis, no edema, right sided hemiparesis Neuro: Awake alert oriented x3 Psych: Normal mood and affect G/U: No Howard Skin: no rashes, warm and dry Lymphatic: no cervical or axillary lymphadenopathy Results & Data Results & Data Vital Signs (Past 12 Hours) Vital Signs Temp Pulse Pulse Resp BP Pulse Ox O2 Del Method 12/18/24 15:46 36.6 C 87 18 115/50 L 97 Oxymask 12/18/24 13:50 86 12/18/24 12:31 85 20 99 Oxymask 12/18/24 11:42 36.1 C L 89 18 125/69 97 Oxymask 12/18/24 08:00 Nasal Cannula 12/18/24 07:46 36.6 C 78 16 106/61 95 Nasal Cannula 12/18/24 07:08 84 17 91 Nasal Cannula 12/18/24 07:00 69 O2 Flow Rate 12/18/24 15:46 4 12/18/24 13:50 12/18/24 12:31 4 12/18/24 11:42 4 12/18/24 08:00 2 12/18/24 07:46 2 12/18/24 07:08 3 12/18/24 07:00 PG Care Time/CCT Total # of Minutes Spent Total Time Spent with Patient: Total time spent is greater than 50% in coordination of care (as documented) at patient's floor/unit and/or counseling patient: Coding Level of Care Code 01753 SUB INP/OBS CARE 3/50MIN Diagnoses Pneumonia J18.9 Hypoxic respiratory failure J96.91 Malignant pleural effusion J91.0 Small cell lung cancer C34.90
--- NOTE | 2024-12-18 16:59 | Procedure Note ---
Procedure Note Date of Service December 18, 2024 Bedside Ultrasound: Lung: Right:-Large right-sided pleural effusion hypoechoic, atelectasis of the right lower lobe, pleural mets appreciated Left:-No pleural effusion Please note the above document was generated using voice recognition software. It may contain grammatical, syntax or spelling errors.Any formal questions or concerns about the content, text or information contained within the body of this dictation should be directly addressed to the provider for clarification. [facility] [place] (Charges) Pulmonary/Thoracic Procedure 1: Pulmonary and Thoracic: 82041 US, Chest, real time with imaging documentation Coding CPT Codes Pulmonary/Thoracic - Pulmonary and Thoracic: 24208 US, Chest, real time with imaging documentation ([id number]) Additional Codes Date of Service ([email or web address])
--- NOTE | 2024-12-18 17:01 | Procedure Note ---
Procedure Note Date of Service December 18, 2024 PREOPERATIVE DIAGNOSIS: Recurrent malignant right pleural effusion. POSTOPERATIVE DIAGNOSIS: Recurrent malignant right pleural effusion. PROCEDURE PERFORMED: Right PleurX catheter placement. ANESTHESIA: Local 1% Lidocaine without Epinephrine COMPLICATIONS: None. INDICATION FOR PROCEDURE: Palliative DESCRIPTION OF PROCEDURE: The patient was placed in a semirecumbent position. I evaluated the right pleura with the ultrasound and located an adequate spot above the diaphragm. The right chest and upper abdomen were prepped and draped in the usual sterile fashion. Lidocaine 1% was used to infiltrate two areas; one in the right upper quadrant where the tube would exit and the other along the anterior axillary line one intercostal space below. A small counterincision was made in the right upper quadrant area. Through the a nterior axillary line area, the pleural space was accessed by Seldinger technique. The counterincision was made around the guidewire and then the PleurX catheter was tunneled from the right upper quadrant small incision to the one overlying the ribs. A sheath introducer was then passed over the wire and then the PleurX catheter was placed through the sheath introducer. There was good return of fluid. 1500 ml of dark serous fluid was withdrawn slowly as the small counterincision was closed with Monocryl stitch. The catheter was capped off, and sterile dressings were applied. The patient tolerated the procedure well without any complications. Chest Xray to follow. Complications: None Blood Loss: < 3cc [facility] Procedure Codes (Charges) Pulmonary/Thoracic Procedure 1: Pulmonary and Thoracic: 35083 Insert pleural cathereter w/cuff Procedure 2: Pulmonary and Thoracic: 99399 Pleural drainage w/o imaging Coding CPT Codes Pulmonary/Thoracic - Pulmonary and Thoracic: 73638 Insert pleural cathereter w/cuff ([id number]) Pulmonary/Thoracic - Pulmonary and Thoracic: 30429 Pleural drainage w/o imaging ([id number]) Additional Codes Date of Service ([facility].SURGERY)
--- NOTE | 2024-12-18 20:34 | Hospitalist Progress Note ---
Date of Service December 18, 2024 Assessment & Plan (1) Acute dyspnea: (2) Pleural effusion: (3) Adenocarcinoma of rectum: (4) Iron deficiency anemia: (5) Diabetes mellitus: (6) HTN (hypertension): (7) HLD (hyperlipidemia): (8) History of CVA (cerebrovascular accident): (9) Atrial fibrillation: (10) Anticoagulant long-term use: (11) MOMO (obstructive sleep apnea): (12) COPD (chronic obstructive pulmonary disease): (13) Depression with anxiety: (14) Osteoporosis: (15) Small cell lung cancer: Plan 84-year-old woman who was admitted with a large right pleural effusion and right hilar mass being treated for postobstructive pneumonia and malignant pleural effusion right pleural effusion was treated with thoracentesis and was found to be malignant. Pathology from right hilar mass and her thoracentesis showed small cell cancer. 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 All bronchoscopy samples positive. Danni is aware that this is a form of lung cancer. small cell cancer can respond quickly to treatment which can provide symptomatic benefit however I am not sure whether she will tolerate any kind of chemotherapy because of her very frail compromised state and low performance status - discussed with palliative care they prefer to wait until she has at least met with medical oncologist. Danni states that her medical decision-maker is her caregiver who has her DPOA. she is too acutely ill at the moment to discuss CODE STATUS - she is in acute respiratory distress this morning because of her right-sided pleural effusion. I discussed urgently with pulmonary and they were able to place a PleurX catheter this afternoon with immediate drainage of 1500 mL dark/bloody fluid. reviewed chest x-rays as noted above - added SL lorazepam as needed for dyspnea - continue amp sulbactam for postobstructive pneumonia this is day 5, consider stopping now or within next 48 hours # possible C. difficile associated diarrhea. history of C. difficile, currently gene positive but toxin negative - Started oral vancomycin with significant improvement - complete treatment course #hyperkalemia - mild, hold lisinopril, given IV fluids which were changed to normal saline. Potassium normal at 4.5 today #GUANAKITO - creatinine improved to 1.22, continue gentle normal saline, a.m. BMP. Lisinopril was held #MOMO - has not tolerated CPAP/BiPAP in the past, did not tolerate here - continuous pulse ox, RT consult, oxygen support as above #atrial fibrillation chronic anticoagulation with apixaban - intrinsically rate controlled, apixaban held because of procedures/thoracenteses. #type 2 diabetes - see pharmacy note for glycemic management - Blood glucoses at goal today #hypertension - nifedipine hydrochlorothiazide and hydralazine were held this morning because of hypotension. Lisinopril is held because of GUANAKITO/hyperkalemia - monitor to see if blood pressures improve following PleurX drain placement and control of effusion #hyperlipidemia - I will stop the statin, because of her advanced age and active metastatic cancer risks likely outweigh benefits #iron deficiency anemia - continue supplement #history of adenocarcinoma of the rectum - reportedly in remission, noted for history #history of CVA - right hemiparesis, PT and OT consult #depression/anxiety - continue citalopram #prophylaxis - SCDs, start low-dose subcu heparin for chemoprophylaxis, resume apixaban when able #CODE STATUS - full code per her wishes, discussed at the bedside with her and her daughter - pending further discussion prognosis for CPR would be poor - palliative care consultation planned medical complexity is high for this encounter, she is in acute respiratory distress because of a uncontrolled condition - malignant pleural effusion requiring urgent procedure today, uncontrolled metastatic small cell cancer she is high risk for clinical deterioration, morbidity and mortality high risk medications and interventions include IV antibiotics, decision about anticoagulants, PleurX catheter placement Admission and Anticipated Discharge Date Admission Date: December 12, 2024 Subjective The patient presents with metastatic small cell carcinoma, right-sided malignant pleural effusion, postobstructive pneumonia, COPD, acute hypoxic respiratory failure, and C. difficile-associated diarrhea. This morning she is severely short of breath, RN reports restless tachypneic sweating very uncomfortable. Danni says this is how she felt prior to thoracentesis. Not having chest pain. Poor appetite. No vomiting. Resides in basement apartment with caregiver holding power of home health registered nurse. Uses wheelchair and home oxygen. Physical Exam Physical Exam: General Appearance: Frail elderly woman, alert and oriented to place and situation. Very uncomfortable Vital signs: Reviewed past 24h vital signs in EMR, unremarkable. HEENT: Within normal limits. Respiratory: Labored, tachypneic. Right chest: no breath sounds except low pitched wheeze at apex. Left chest: clear to auscultation. No rhonchi, rales, or wheezes. Cardiovascular: Tachycardic, regular. No murmur. Gastrointestinal: Soft, nontender, nondistended. Extremities: Warm, well perfused. No lower extremity edema. Skin: Warm and dry, no rash. Neurological: Normal. Psychiatric: Normal. Results & Data Results & Data Vital Signs (Past 12 Hours) Vital Signs Temp Pulse Pulse Resp BP Pulse Ox O2 Del Method 12/18/24 20:08 79 18 95 Nasal Cannula 12/18/24 19:39 36.8 C 84 14 138/73 96 Nasal Cannula 12/18/24 15:46 36.6 C 87 18 115/50 L 97 Oxymask 12/18/24 13:50 86 12/18/24 12:31 85 20 99 Oxymask 12/18/24 11:42 36.1 C L 89 18 125/69 97 Oxymask O2 Flow Rate 12/18/24 20:08 2.5 12/18/24 19:39 2 12/18/24 15:46 4 12/18/24 13:50 12/18/24 12:31 4 12/18/24 11:42 4 Laboratory Results - Labs: - Creatinine: 1.22 (improved from 1.7 on admission) - Gram stain from pleural fluid: Poly, no organisms - Blood cultures x 1: Finalized without concern I personally reviewed the chest x-ray film from this morning shows complete opacification of the right hemithorax, no tracheal/mediastinal shift I personally reviewed the follow-up chest x-ray after right PleurX drain placement there is no right chest tube in place right hemithorax continues to be entirely opacified PG Care Time/CCT Total # of Minutes Spent Total Time Spent with Patient: Total time spent is greater than 50% in coordination of care (as documented) at patient's floor/unit and/or counseling patient: Coding Level of Care Code 62132 SUB INP/OBS CARE 3/50MIN Diagnoses Acute dyspnea R06.00 Pleural effusion J90 Adenocarcinoma of rectum C20 Iron deficiency anemia D50.9 Diabetes mellitus E11.9 HTN (hypertension) I10 HLD (hyperlipidemia) E78.5 History of CVA (cerebrovascular accident) Z86.73 Atrial fibrillation I48.91 Anticoagulant long-term use Z79.01 MOMO (obstructive sleep apnea) G47.33 COPD (chronic obstructive pulmonary disease) J44.9 Depression with anxiety F41.8 Osteoporosis M81.0 Small cell lung cancer C34.90
--- NOTE | 2024-12-19 08:39 | Pulmonology Progress Note ---
Date of Service December 19, 2024 Assessment & Plan (1) Pneumonia: (2) Hypoxic respiratory failure: (3) Malignant pleural effusion: (4) Small cell lung cancer: Plan Patient is an 84-year-old female with heavy tobacco use history. Pulmonary has been consulted during her hospital stay for right hemithorax opacification. The patient underwent thoracentesis 12/14/2024: Malignant cells are present, consistent with metastatic small cell carcinoma. Underwent bronchoscopy 12/14/2024, all samples were positive for small cell carcinoma. CT chest 12/12/2024 personally reviewed: Right upper lobe mass with significant mediastinal and hilar lymphadenopathy Large right-sided pleural effusion Significant narrowing of the RBI -- Right-sided pleural effusion with mediastinal mass S/p thoracentesis 12/14/2024, positive for small cell carcinoma Patient found benefit after thoracentesis when it comes to her breathing S/p right-sided PleurX catheter placement 12/18/2024 --Acute hypoxic respiratory failure Multifactorial Large right-sided pleural effusion with complete collapse of the right lower part of the lung. --COPD with emphysema On Trelegy 100 at home Not in exacerbation currently -- Stage IV metastatic small cell lung cancer Admission and Anticipated Discharge Date Admission Date: December 12, 2024 Supervising Physician Co-Signing Physician Notes I saw and evaluated the patient with HARISH Torres, and agree with findings and plan as documented in the note. Patient seen and examined at bedside. No acute distress, no adverse events overnight Patient was saturating well on 2 L of cannula She stated she is feeling much better after drainage yesterday. Denies any chest pain No discomfort at the site of the catheter No nausea or vomiting On bowel movement have also decreased in frequency. Constitutional: No acute distress HEENT: EOMI, PERRLA Respiratory system: Decreased air entry on the right side, no wheeze, no rhonchi, positive crackles more on the left CVS: S1-S2 positive, no murmurs or gallops Abdomen: Soft, nontender, nondistended, positive bowel sounds x4 Extremities: +2 pulses bilaterally radialis/ dorsalis pedis, no cyanosis, no edema, right sided hemiparesis Neuro: Awake alert oriented x3 Psych: Normal mood and affect G/U: No Howard Plan: Pleurx placed 12/19/24. Drained 1500ml on 12/18/24. Another 1 L drained today. Moving forward recommend to drain [id number]-[id number] or Wednesday patient is complaining of shortness of breath/chest discomfort Recommended MRI of the brain Palliative care consult will be beneficial No further recommendation from pulmonary perspective, will sign off Please call directly with any questions Please note the above document was generated using voice recognition software. It may contain grammatical, syntax or spelling errors.Any formal questions or concerns about the content, text or information contained within the body of this dictation should be directly addressed to the provider for clarification. Subjective "I don't feel short of breath this morning." Right sided Pleurx catheter placed this am with 1500ml drained yesterday afternoon. Patient states that her SOB is better after having the Pleurx placed. Will plan to drain again today. Review of Systems 2 Review of Systems: All systems reviewed & are unremarkable except as noted in HPI & below Physical Exam 2 Physical Exam: VITALS: Reviewed. WEIGHT/BMI reviewed. GEN: Pleasant, well-developed, NAD. PSYCH: Good Judgment. AOx3. Normal memory, mood, and affect. HEENT -Head: NC/AT; -Eyes: PERRL, EOMI. No discharge or redn ess; -Ears: External ears are normal. -Nose: Normal nares. NECK: Supple, with no masses. CV: RRR, no m/r/g. LUNGS: Clear in left upper and lower lobe. Diminished right upper and lower lobe. Chest rise symmetrical. Breathing nonlabored. ABD: N/A : N/A SKIN: Warm, well perfused. No skin rashes or abnormal lesions. MSK: No deformities, Normal gait. EXT: No clubbing, cyanosis, or edema. NEURO: Right upper extremity weakness, normal strength and tone in all other extremities. Skin: no rashes, warm and dry Lymphatic: no cervical or axillary lymphadenopathy Results & Data Results & Data Vital Signs (Past 12 Hours) Vital Signs Temp Pulse Pulse Pulse Resp BP Pulse Ox 12/19/24 07:15 77 16 96 12/19/24 07:06 36.7 C 76 24 106/63 95 12/19/24 07:00 76 12/19/24 05:08 99 12/19/24 03:22 36.5 C 76 16 110/63 99 12/18/24 22:56 36.5 C 89 18 120/72 98 12/18/24 21:58 78 O2 Del Method O2 Flow Rate 12/19/24 07:15 Nasal Cannula 2 12/19/24 07:06 Nasal Cannula 12/19/24 07:00 12/19/24 05:08 Nasal Cannula 2 12/19/24 03:22 Nasal Cannula 4 12/18/24 22:56 Nasal Cannula 4 12/18/24 21:58 Laboratory Results 12/17/24 05:33 12/17/24 05:33 Abnormal Lab Results 12/18/24 12/18/24 12/18/24 11:14 16:32 16:41 POC Glucose 147 H 131 H 134 H 12/18/24 12/19/24 19:59 07:08 POC Glucose 156 H 108 H Diagnostic Findings Chest X-Ray 12/18/24 10:19 XR chest 1V portable HISTORY: 84 years-old Female dyspnea COMPARISON: 12/15/2024 chest radiograph, chest CT 12/12/2024 TECHNIQUE: AP view of the chest FINDINGS: Complete opacification of the right hemithorax is unchanged. Heart size is within normal limits. Mild pulmonary emphysema of the left lung with calcified granuloma of the left upper lobe redemonstrated. Left lung is clear. Degenerative changes of the shoulders and spine. IMPRESSION: 1. Unchanged appearance of the chest. 2. Complete opacification of the right hemithorax redemonstrated, better evaluated on the chest CT from 12/12/2024 demonstrating right lung consolidation/collapse with pleural effusion. ACT 112: Negative or not required by law. The above report was generated using voice recognition software. It may contain grammatical, syntax or spelling errors. Electronically signed by: Vincent Padilla M.D. 12/18/2024 10:53 AM Chest X-Ray 12/18/24 15:24 XR chest 1V portable CLINICAL HISTORY: thorocentesis and drainage tube placement COMPARISON STUDY: 12/18/2024 FINDINGS: A right basilar chest tube is now evident. There is persistent complete opacification of the right hemithorax. The left lung remains generally clear. No pneumothorax is visualized. IMPRESSION: 1. Interval placement of a right-sided chest tube 2. Continued complete opacification of the right hemithorax. ACT 112: Negative or not required by law. Electronically signed by: Miah Barreto M.D. 12/18/2024 3:49 PM PG Care Time/CCT Total # of Minutes Spent Total Time Spent with Patient: Total time spent is greater than 50% in coordination of care (as documented) at patient's floor/unit and/or counseling patient: Coding Level of Care Code 55143 SUB INP/OBS CARE 2/35MIN Diagnoses Pneumonia J18.9 Hypoxic respiratory failure J96.91 Malignant pleural effusion J91.0 Small cell lung cancer C34.90
--- NOTE | 2024-12-19 12:57 | Procedure Note ---
Procedure Note Date of Service December 19, 2024 Procedure: Therapeutic drainage of the right-sided pleural effusion Intake Clinician: Dr. Bertin Gomez Indication: Pleural effusion Consent: Verbal consent was obtained from the patient. Anesthesia: None Procedure: Under aseptic and sterile precautions, dressing of the PleurX catheter was removed. The catheter was connected to a suction kit. 1 L of serosanguineous fluid was removed slowly. Patient tolerated the procedure well. Denied any chest discomfort at this time. PleurX catheter was dressed with 4 x 4's and Tegaderm Complications: None Blood loss: None [facility] [place] Procedure Codes (Charges) Pulmonary/Thoracic Procedure 1: Pulmonary and Thoracic: 67654 Pleural drainage w/o imaging Coding CPT Codes Pulmonary/Thoracic - Pulmonary and Thoracic: 07409 Pleural drainage w/o imaging ([id number]) Additional Codes Date of Service (PG.SURGERY)
[2024-12-19] MEDS: ACETAMINOPHEN 325 MG TAB PO PRN (15:23)
--- NOTE | 2024-12-19 19:36 | Hospitalist Progress Note ---
Date of Service December 19, 2024 Assessment & Plan (1) Acute dyspnea: (2) Pleural effusion: (3) Adenocarcinoma of rectum: (4) Iron deficiency anemia: (5) Diabetes mellitus: (6) HTN (hypertension): (7) HLD (hyperlipidemia): (8) History of CVA (cerebrovascular accident): (9) Atrial fibrillation: (10) Anticoagulant long-term use: (11) MOMO (obstructive sleep apnea): (12) COPD (chronic obstructive pulmonary disease): (13) Depression with anxiety: (14) Osteoporosis: (15) Small cell lung cancer: Plan 84-year-old woman who was admitted with a large right pleural effusion and right hilar mass being treated for postobstructive pneumonia and malignant pleural effusion right pleural effusion was treated with thoracentesis and was found to be malignant. Pathology from right hilar mass and her thoracentesis showed small cell cancer. 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 She is adamant that she would not want to have chemotherapy or other cancer directed treatments. She feels much better after the PleurX drain she wishes to return home with her longtime caregivers. she says she would not want CPR or intubation. we discussed home hospice and explained what that entails, she is in agreement that would be the best way to proceed. I also discussed with her power of consumer attorney Erna over the phone and she says they prefer [facility], she has experience with this because unfortunately her sister recently of small cell cancer on hospice. - acute respiratory distress resolved with drainage of pleural fluid yesterday. PleurX catheter placed 12/[address] Goodson. 1700 mL drained yesterday and 1000 mL drained this morning by pulmonary. Plan to train her caregiver and/or caregivers daughter on using the PleurX, they are in agreement. - added SL lorazepam and oral oxycodone as needed for dyspnea - has completed a course of amp sulbactam for postobstructive pneumonia during this admission # possible C. difficile associated diarrhea. history of C. difficile, currently gene positive but toxin negative - Started oral vancomycin with significant improvement - initially had massive diarrhea improved to several stools yesterday and only 1 small stool today - complete treatment course - added probiotic #hyperkalemia - mild, resolved, discontinue lisinopril #GUANAKITO - creatinine improved to 1.22 after gentle IV fluids and holding lisinopril #MOMO - has not tolerated CPAP/BiPAP in the past, did not tolerate here #atrial fibrillation chronic anticoagulation with apixaban - intrinsically rate controlled, apixaban held because of procedures/thoracenteses, will not resume because of overall goals of care #type 2 diabetes - see pharmacy note for glycemic management - Blood glucoses at goal today # history of hypertension which seems to have resolved - nifedipine lisinopril hydrochlorothiazide and hydralazine are stopped because of hypotension and GUANAKITO. She is currently normotensive - hypotension did improve after PleurX placement and adequate drainage of effusion #hyperlipidemia - I will stop the statin, because of her advanced age and active metastatic cancer risks outweigh benefits #iron deficiency anemia - continue supplement #history of adenocarcinoma of the rectum - reportedly in remission, noted for history #history of CVA - remote - right hemiparesis, bedbound the last few years and nonambulatory #depression/anxiety - continue citalopram #prophylaxis - SCDs, low-dose subcu heparin for chemoprophylaxis goals of careas documented above she prefers DNR/DNI CODE STATUS order was changed today, planning discharge with home hospice discussed with acute care certified nursing assistant who will make a referral to [facility], prescription written medical complexity is high for this encounter because of uncontrolled metastatic cancer, malignant pleural effusion decision for DNR/DNI and hospice Admission and Anticipated Discharge Date Admission Date: December 12, 2024 Subjective Danni feels much better after pleurX placement and drainage of 1700 mL yesterday and 1000 mL this morning No longer acutely dyspneic. No chest pain or pain from pleurX site. R hemiparesis from remote stroke Lost her ability to walk 2-3 years ago Physical Exam Physical Exam: General Appearance: Frail elderly woman, alert and oriented to place and situation. Appears much more comfortable Vital signs: Reviewed past 24h vital signs in EMR, unremarkable. HEENT: Within normal limits. Respiratory: comfortable resp effort, breath sounds now present in right anterior and apex posteriorly, CTA on left. R lower anterior chest pleurX drain dressed, no strikethrough Cardiovascular: Reg no mrg. Gastrointestinal: Soft, nontender, nondistended. Extremities: Warm, well perfused. No lower extremity edema. Skin: Warm and dry, no rash. Neurological: AOx4, R hemiparesis, RUE contracture and 0/5 strength, RLE with 2/5 strength. Psychiatric: Normal. Results & Data Results & Data Vital Signs (Past 12 Hours) Vital Signs Temp Pulse Pulse Resp BP Pulse Ox O2 Del Method 12/19/24 15:14 37.3 C 80 18 105/71 95 Nasal Cannula 12/19/24 14:00 89 12/19/24 13:12 86 18 93 Nasal Cannula 12/19/24 11:24 36.5 C 79 18 107/64 90 Nasal Cannula O2 Flow Rate 12/19/24 15:14 12/19/24 14:00 12/19/24 13:12 2 12/19/24 11:24 2 PG Care Time/CCT Total # of Minutes Spent Total Time Spent with Patient: Total time spent is greater than 50% in coordination of care (as documented) at patient's floor/unit and/or counseling patient: Coding Level of Care Code 11935 SUB INP/OBS CARE 3/50MIN Diagnoses Acute dyspnea R06.00 Pleural effusion J90 Adenocarcinoma of rectum C20 Iron deficiency anemia D50.9 Diabetes mellitus E11.9 HTN (hypertension) I10 HLD (hyperlipidemia) E78.5 History of CVA (cerebrovascular accident) Z86.73 Atrial fibrillation I48.91 Anticoagulant long-term use Z79.01 MOMO (obstructive sleep apnea) G47.33 COPD (chronic obstructive pulmonary disease) J44.9 Depression with anxiety F41.8 Osteoporosis M81.0 Small cell lung cancer C34.90
[2024-12-19] MEDS: MELATONIN 3 MG TAB PO PRN (23:49)
--- NOTE | 2024-12-20 07:35 | XRay Report ---
EXAM: XR chest 1V portable CLINICAL HISTORY: f/u TECHNIQUE: X-ray images of the chest were obtained in AP projection. COMPARISON: CR 12/18/2024 FINDINGS: Pulmonary Parenchyma: There is total opacification involving the right hemithorax. The left lung appears unremarkable. Heart and Mediastinum: The heart size and shape are normal. There is no mediastinal widening or masses. No hilar or mediastinal lymphadenopathy is seen. Bony Thorax: The bony thorax appears intact without fractures or deformities. Soft Tissues: The soft tissues overlying the chest wall are unremarkable. IMPRESSION: Total opacification involving the right hemithorax, unchanged. Electronically signed by Kwadwo Gaines 12-20-2024 07:34 AM
--- NOTE | 2024-12-20 07:47 | Hospitalist Progress Note ---
Date of Service December 20, 2024 Assessment & Plan (1) Small cell lung cancer: (2) Malignant pleural effusion: (3) Adenocarcinoma of rectum: (4) Atrial fibrillation: Plan In summary this is a 84-year-old female who presented with progressive dyspnea and hypoxia found to have large right pleural effusion consequential of established squamous cell carcinoma. Patient has transition to home hospice, care has been established but cannot be well-coordinated until 12/21; continue with current plan of care until discharge plan is well-defined Continue management of their chronic medical conditions with adjustments made based on the patient's goals of care Admission and Anticipated Discharge Date Admission Date: December 12, 2024 Subjective Ms. Stahl Is an 84-year-old female whose active medical conditions include metastatic small cell lung cancer associated with right pleural effusion requiring placement of PleurX catheter among other chronic medical conditions who presented to the [facility] on 12/12 due to persistent progressive dyspnea on exertion subsequently admitted for management of a malignant right pleural effusion. No acute overnight events; patient is doing well with regard to symptom control and management of the PleurX catheter. They have no specific complaints or concerns at this time Review of Systems Review of Systems: Review of constitutional, pulmonary, cardiovascular systems was unremarkable Physical Exam Physical Exam: General: Elderly female in no acute distress Vital Signs: Reviewed HEENT: Moist mucous membranes Pulmonary: Symmetric chest wall excursion without restriction; diminished air movement in the bilateral posterior basilar segments; PleurX catheter site appear well Cardiovascular: Regular rate and rhythm without murmurs, rubs, or gallops; right radial pulse 2+ Results & Data Results & Data Vital Signs (Past 12 Hours) Vital Signs Temp Pulse Pulse Resp BP Pulse Ox O2 Del Method 12/20/24 07:25 37.0 C 69 18 118/69 94 Nasal Cannula 12/20/24 04:04 36.5 C 74 18 117/70 96 Nasal Cannula 12/19/24 22:34 36.8 C 86 18 120/74 96 Nasal Cannula 12/19/24 21:54 90 12/19/24 21:17 Room Air 12/19/24 20:08 86 18 96 Nasal Cannula O2 Flow Rate 12/20/24 07:25 12/20/24 04:04 2 12/19/24 22:34 2 12/19/24 21:54 12/19/24 21:17 2 12/19/24 20:08 2 PG Care Time/CCT Total # of Minutes Spent Total Time Spent with Patient: Total time spent is greater than 50% in coordination of care (as documented) at patient's floor/unit and/or counseling patient: Coding Level of Care Code 06171 SUB INP/OBS CARE 2/35MIN Diagnoses Small cell lung cancer C34.90 Malignant pleural effusion J91.0 Adenocarcinoma of rectum C20 Atrial fibrillation I48.91
[2024-12-21] MEDS: ALBUT/IPRATROP 3MG/0.5MG NEB 3 ML VIAL NEB PRN (08:12)
[2024-12-21 11:05] VITALS: RESP 16; TEMP 98.2; O2SAT 91
[2024-12-21 12:27] VITALS: BP 108/60; PULSE 76
--- NOTE | 2024-12-23 12:20 | Discharge Summary ---
Discharge Summary Date of Service December 21, 2024 Principal Dx & Hospital Course #1 = Principal Diagnosis (1) Small cell lung cancer: (2) Malignant pleural effusion: (3) Adenocarcinoma of rectum: (4) Atrial fibrillation: Plan In summary this is a 84-year-old female who presented with progressive dyspnea and hypoxia found to have large right pleural effusion consequential of established squamous cell carcinoma. At the time of her admission, goals of care discussion was pursued with the admitting provider, patient, and caregiver; the conclusion of this discussion was the patient would like to pursue comfort measures and hospice care. This has been established during patient's hospitalization, they are able to return home with home hospice. The patient's caregiver was given instructions on how to appropriately use the PleurX catheter for symptomatic control of the recurrent malignant pleural effusion and home hospice to help coordinate continued care upon their return home. Continue management of their chronic medical conditions with adjustments made based on the patient's goals of care Admission HPI Per Admitting Provider Patient is an 84-year-old history of Distant history of colon cancer 3 years ago, COPD, type 2 diabetes, right hemiplegia post CVA, paroxysmal A-fib, sleep apnea presents emergency department with shortness of breath. Patient was discharged from [facility] 4 days ago after 4-day hospitalization. at that time she had received a new diagnosis of pleural effusion which was tapped. Results have not returned. She was told that she may have a lung malignancy as the cause of her pleural effusion. She was sent home and has been weak, short of breath and decreased energy different than her baseline since arriving back at home. Secondary to the progressive shortness of breath and weakness her daughter brought her here to the emergency department for evaluation. CT obtained in the emergency department showed a recurrence of the significant right sided pleural effusion with the right hilar mass. Subsegmental obstruction was noted. No central airway obstruction noted. patient weak and hypoxemic on arrival. Blood gas consistent with acute hypoxemic respiratory failure. initially felt pretty good on BiPAP but however has a history of not tolerating secondary to anxiety. Consultation with Dr. Jordan pulmonology. Plan to admit the patient for recurrent pleural effusion. Pulmonary consult. Aggressive pulmonary toilet. RT consult. Likely thoracentesis. She is on Eliquis and took it this morning so we will hold that on admission. Discharge Exam General: Elderly female in no acute distress Vital Signs: Reviewed HEENT: Moist mucous membranes Pulmonary: Symmetric chest wall excursion without restriction; diminished air movement in the bilateral posterior basilar segments; PleurX catheter site appears well Cardiovascular: Regular rate and rhythm without murmurs, rubs, or gallops; right radial pulse 2+ Genitourinary: Howard catheter in place Discharge Plan Discharge Items Patient Disposition: Hospice - Home Reason For Visit: SHORTNESS OF BREATH Discharge Diagnosis: Stage IV Small cell lung cancer // recurrent malignant pleural effusions Condition on Discharge: Fair Activity: Per Instructions section Non-emergency contact: Primary Care Provider Call non-emergency contact if: you have any medication questions Follow-up/Referrals: Yesi Trammell DO [Primary Care Provider] - Diet: Regular Fluids: 2000ml (8 cups) Addtl Attending Provider Instructions: You were admitted to [facility] for persistent dyspnea at rest and on exertion found to be consequential of malignant pleural effusion. After an extensive goals of care discussion the decision was made to transition your plan of care to focus on comfort rather than active treatment in the setting of your stage IV small cell lung cancer; first symptom control associated with your recurrent right malignant pleural effusion a PleurX catheter was placed without complication. Teaching was provided during her hospitalization to assist with continued use in the outpatient setting. There was also found to be a postobstructive pneumonia at your initial admission, he completed a course of Unasyn for treatment of this. There was associated diarrhea during treatment, and raise concern of possible new C. difficile colitis however there was no present toxin B gene was present. For this reason it was determined that you should complete a course of oral vancomycin through 12/26. Prior to discharge, [facility] met with you and your caregiver to discuss treatment plan and will continue to follow you in the outpatient setting; they, in addition to your primary care provider, are going to be your primary points of contact in the event that you have persistent or progressive symptoms that are concerning and will help advise regarding the need for emergency room presentation versus management of your symptoms at home. Thank you for choosing [facility] as your healthcare provider. Pending Studies at Discharge: No Stand-Alone Forms: [facility] Medications and DC Order Prescriptions: New vancomycin 125 mg Capsule 125 mg PO Q6 6 Days Qty: 24 0RF Continued (DME) Spacer for Inhaler Misc See Rx Instructions .Route Qty: 1 0RF Rx Instructions: As directed citalopram 20 mg tablet 20 mg PO DAILY Qty: 90 3RF albuterol sulfate 90 mcg/actuation HFA aerosol inhaler 2 puff inhalation QID PRN (Reason: shortness of breath or wheezing) Qty: 8.5 0RF insulin glargine [Basaglar KwikPen U-100 Insulin] 100 unit/mL (3 mL) insulin pen 10 unit subcut QPM Qty: 15 3RF albuterol sulfate 2.5 mg /3 mL (0.083 %) solution for nebulization 2.5 mg inhalation Q6H PRN (Reason: shortness of breath or wheezing) Qty: 360 3RF (DME) Oxygen Home Liters Per Minute See Rx Instructions .Route Qty: 1 0RF Rx Instructions: As directed. Wear 1 liter of oygen at rest via nasal cannula. (DME) Oxygen Home Liters Per Minute See Rx Instructions .Route Rx Instructions: 2 lpm at bedtime (DME) OneTouch Ultra Test Strip See Rx Instructions .Route Qty: 400 3RF Rx Instructions: test qid dx: e11.9 (DME) lancets [OneTouch UltraSoft 2 Lancet] 30 gauge [facility] See Rx Instructions .Route Qty: 400 3RF Rx Instructions: test qid (DME) nebulizers [facility] See Rx Instructions .Route Qty: 1 0RF Rx Instructions: As directed Trelegy Ellipta 100-62.5-25 mcg blister with device 1 inh inhalation DAILY Qty: 28 2RF (DME) Aerochamber MV Spacer See Rx Instructions .Route Qty: 1 0RF Rx Instructions: As directed. Spacer for albuterol Discontinued rosuvastatin 10 mg tablet 10 mg PO DAILY Qty: 90 3RF hydrochlorothiazide 12.5 mg tablet 12.5 mg PO DAILY Qty: 90 3RF hydralazine 10 mg tablet 10 mg PO BID Qty: 180 3RF ferrous sulfate 325 mg (65 mg iron) tablet 325 mg PO DAILY Qty: 30 5RF nifedipine 60 mg tablet extended release 24hr 60 mg PO DAILY Qty: 90 3RF lisinopril 20 mg tablet 20 mg PO DAILY Qty: 90 3RF fluticasone propionate [Allergy Relief (fluticasone)] 50 mcg/actuation spray,suspension 2 spray intranasal DAILY PRN (Reason: Congestion) Rx Instructions: administer into each nostril magnesium oxide 400 mg magnesium capsule 400 mg PO DAILY multivitamin Tablet 1 tab PO DAILY cranberry 500 mg capsule 500 mg PO BIDM Rx Instructions: administer with meals Eliquis 2.5 mg tablet 2.5 mg PO BID Rx Instructions: CHANGED DOSE 12/07/24 Discharge Orders: Discharge Order (Routine); Ordered 12/21/24 Ordered By: Ananda Harris Admission Data Admit Date/Time: 12/12/24 19:18 Attending Provider: Ananda Harris Admit Provider: Hipolito Molina Primary Care Provider: Yesi Trammell Other Providers: Mohan Parish; Norma Jordan Other Interventions: Discharge Summary Assessment (RN) Last Done: 12/21/24 12:25 Hospital Stay Data Consultations 12/12/24 17:13 ED Decision to Admit Stat 12/12/24 21:42 Consult Pulmonology Routine Procedures Performed Operation Date: 12/14/24 13:35 Actual Procedures p Bronchoscopy(Not Applicable) - Norma Jordan MD s Endobronchial Ultrasound, Thoracentesis with Ultrasound Guidance(Not Applicable) - Norma Jordan MD Diagnostic Imagining Performed 12/12/24 16:55 CT chest diagnostic wo con Stat 12/14/24 13:40 US point of care ultrasound Urgent 12/18/24 14:15 US point of care ultrasound Urgent Pending Results Patient Have Any Pending Studies at Discharge: No Discharge Instructions Given to Patient (Per Discharging Provider) You were admitted to [facility] for persistent dyspnea at rest and on exertion found to be consequential of malignant pleural effusion. After an extensive goals of care discussion the decision was made to transition your plan of care to focus on comfort rather than active treatment in the setting of your stage IV small cell lung cancer; first symptom control associated with your recurrent right malignant pleural effusion a PleurX catheter was placed without complication. Teaching was provided during her hospitalization to assist with continued use in the outpatient setting. There was also found to be a postobstructive pneumonia at your initial admission, he completed a course of Unasyn for treatment of this. There was associated diarrhea during treatment, and raise concern of possible new C. difficile colitis however there was no present toxin B gene was present. For this reason it was determined that you should complete a course of oral vancomycin through 12/26. Prior to discharge, [facility] met with you and your caregiver to discuss treatment plan and will continue to follow you in the outpatient setting; they, in addition to your primary care provider, are going to be your primary points of contact in the event that you have persistent or progressive symptoms that are concerning and will help advise regarding the need for emergency room presentation versus management of your symptoms at home. Thank you for choosing [facility] as your healthcare provider. Total Time Total Time Spent Total Time Spent (In Minutes): I personally spent 40 minutes in the coordination of today's discharge including bedside counseling, physical exam, coordination of care with home hospice with the assistance of case management, and medication reconciliation aligning with the patient's current goals of care Coding Level of Care Code 66873 INP/OBS DISCH >30 MIN Diagnoses Small cell lung cancer C34.90 Malignant pleural effusion J91.0 Adenocarcinoma of rectum C20 Atrial fibrillation I48.91
== END 2024-12-21 13:51 | disposition hospice, home (50) | DRG 166 ==
LOC: SUATTDRO → ED 14:51 → 2S 19:18 → SUATTDRO 19:18 → 2S 21:09